=== PATIENT | female | born 1980 | race Caucasian/White ===

== ENCOUNTER 2020-01-07 11:15 | Outpatient (CLI) | payer OTHER, SELFPAY ==
--- NOTE | ~2020-01-07 | XR_ITS ---
EXAMINATION: XR chest 2V EXAM DATE: 01/07/2020 11:37 INDICATION: Left-sided chest pain, posterior pleuritic. Shortness of breath. TECHNIQUE: Frontal and lateral projections of the chest obtained and reviewed. Comparison is made to prior examination from 11/07/2017. FINDINGS: The lungs are clear. There are no pleural effusions. The cardiomediastinal silhouette is within normal limits. There is no pneumothorax suspected. The bones and soft tissues are unremarkab le. IMPRESSION: Normal chest x-ray exam. Reviewed, dictated and finalized at location B. IMPRESSION: Normal chest x-ray exam.
[2020-01-07 11:30] LABS: Basophils Absolute Auto 0.06 K/mm3 (0.00-0.10); Basophils Percent Auto 0.8 % (0.0-1.0); Eosinophils Absolute Auto 0.19 K/mm3 (0.02-0.50); Eosinophils Percent Auto 2.6 % (1.0-6.0); Hematocrit 40.5 % (35.0-49.0); Hemoglobin 13.5 g/dL (12.0-15.0); Immature Granulocyte Absolute 0.02 K/mm3 (0.00-0.00); Immature Granulocyte Percent A 0.3 % (0.0-0.0); Lymphocytes Absolute Auto 2.52 K/mm3 (1.10-4.50); Lymphocytes Percent Auto 34.2 % (18.0-42.0); Mean Corpuscular HGB Conc 33.3 g/dL (32.0-36.0); Mean Corpuscular Hemoglobin 28.8 pg (27.0-31.0); Mean Corpuscular Volume 86.5 fL (78.0-102.0); Mean Platelet Volume 10.2 fl (9.2-11.8); Monocytes Absolute Auto 0.39 K/mm3 (0.10-0.90); Monocytes Percent Auto 5.3 % (2.0-11.0); Neutrophils Absolute Auto 4.2 K/mm3 (1.7-7.2); Neutrophils Percent Auto 56.8 % (50.0-70.0); Platelet Count Result 223 K/mm3 (150-420); Red Blood Count 4.68 M/mm3 (4.20-5.40); Red Cell Distribution Width 12.7 % (11.6-14.4); White Blood Count 7.4 K/mm3 (4.8-10.8)
[2020-01-07 11:44] LABS: D Dimer 0.19 mg/L (0.19-0.50)
[2020-01-07 11:45] LABS: Alanine Aminotransferase 19 U/L (14-59); Albumin Level 3.7 g/dL (3.4-5.0); Alkaline Phosphatase 84 U/L (46-116); Anion Gap 13.3 mmol/L (7-16); Aspartate Amino Transferase 12 U/L (15-37); Bilirubin,Total 0.9 mg/dL (0.00-1.00); Blood Urea Nitrogen 16 mg/dL (7-18); CRP 1.3 mg/dL (0.0-0.9); Calcium 8.3 mg/dL (8.5-10.1); Carbon Dioxide 26 mmol/L (21-32); Chloride 104 mmol/L (98-108); Estimated Glomerular Filt Rate > 60; Glucose 85 mg/dL (70-99); Osmolality Calculated 288 mOsm/kg (285-295); Potassium 4.3 mmol/L (3.5-5.1); Sodium 139 mmol/L (136-145); Total Protein 7.3 g/dL (6.4-8.2)
== END 2020-01-07 11:16 | disposition home or self-care (01) ==
LOC: CHSLAB 11:19
PROVIDERS: PCP Internal Medicine; Visit Provider Internal Medicine
DX: R07.9 Chest pain, unspecified (principal); R09.1 Pleurisy
CPT/HCPCS: 36415; 71046; 80053; 85025; 85380; 86140

== ENCOUNTER 2020-02-03 13:21 | Outpatient (CLI) | payer OTHER, SELFPAY | END 2020-02-03 13:22 | disposition home or self-care (01) | LOC: CHSLAB 13:24 | PROVIDERS: PCP Internal Medicine; Visit Provider Specialist | DX: L91.8 Other hypertrophic disorders of the skin (principal); D22.5 Melanocytic nevi of trunk | CPT/HCPCS: 88305 ==

== ENCOUNTER 2020-02-17 17:15 | Outpatient (CLI) | payer OTHER, SELFPAY | END 2020-02-17 17:16 | disposition home or self-care (01) | LOC: CHSLAB 17:18 | PROVIDERS: PCP Internal Medicine; Visit Provider Specialist | DX: L98.8 Other specified disorders of the skin and subcutaneous tissue (principal) | CPT/HCPCS: 88305; 88342 ==

== ENCOUNTER 2021-06-15 07:33 | Outpatient (CLI) | payer OTHER, SELFPAY ==
[2021-06-15 07:50] LABS: Basophils Absolute Auto 0.08 K/mm3 (0.00-0.10); Eosinophils Absolute Auto 0.21 K/mm3 (0.02-0.50); Eosinophils Percent Auto 2.5 % (1.0-6.0); Hematocrit 38.6 % (35.0-49.0); Hemoglobin 13.1 g/dL (12.0-15.0); Immature Granulocyte Absolute 0.04 K/mm3 (0.00-0.00); Immature Granulocyte Percent A 0.5 % (0.0-0.0); Lymphocytes Absolute Auto 2.18 K/mm3 (1.10-4.50); Mean Corpuscular HGB Conc 33.9 g/dL (32.0-36.0); Mean Corpuscular Volume 85.4 fL (78.0-102.0); Mean Platelet Volume 9.9 fl (9.2-11.8); Monocytes Absolute Auto 0.45 K/mm3 (0.10-0.90); Monocytes Percent Auto 5.4 % (2.0-11.0); Neutrophils Absolute Auto 5.4 K/mm3 (1.7-7.2); Neutrophils Percent Auto 64.6 % (50.0-70.0); Platelet Count Result 250 K/mm3 (150-420); Red Blood Count 4.52 M/mm3 (4.20-5.40); Red Cell Distribution Width 13.2 % (11.6-14.4); White Blood Count 8.4 K/mm3 (4.8-10.8)
[2021-06-15 08:57] LABS: Alanine Aminotransferase 35 U/L (14-59); Albumin Level 3.6 g/dL (3.4-5.0); Alkaline Phosphatase 84 U/L (46-116); Anion Gap 12 mmol/L (8-16); Aspartate Amino Transferase 21 U/L (15-37); Bilirubin,Total 0.8 mg/dL (0.00-1.00); Blood Urea Nitrogen 16 mg/dL (7-18); Calcium 8.5 mg/dL (8.5-10.1); Carbon Dioxide 24 mmol/L (21-32); Chloride 103 mmol/L (98-108); Cholesterol 183 mg/dL (0-200); Estimated Glomerular Filt Rate > 60; Glucose 102 mg/dL (70-99); HDL Direct 41 mg/dL (40-60); LDL Cholesterol Calculated 109 mg/dL (<130); Magnesium 1.8 mg/dL (1.8-2.4); Osmolality Calculated 289 mOsm/kg (285-295); Potassium 4.7 mmol/L (3.5-5.1); Sodium 139 mmol/L (136-145); Total Protein 6.7 g/dL (6.4-8.2); Triglycerides 165 mg/dL (0-150)
[2021-06-15 09:24] LABS: Thyroid Stimulating Hormone 1.61 uIU/mL (0.36-3.74)
[2021-06-15 13:35] LABS: Appearance Urine Clear (Clear); Color Urine Light Yellow (Yellow)
[2021-06-15 13:36] LABS: Blood Urine Trace-Intact (Negative); Glucose Urine UA Negative (Negative); Ketones Urine Trace (Negative); Protein Urine Negative (Negative); Specific Grav Ur >= 1.030 (1.010-1.020)
[2021-06-15 13:37] LABS: Add Urine Microscopic? YES; Bacteria Urine Trace /hpf; Bilirubin Urine Negative (Negative); Leukocyte Esterase Ur Negative (Negative); Mucus Urine Moderate /lpf; Nitrate Urine Negative (Negative); RBC Urine 0-2 /hpf (0-2); Squamous Epithelial Cell Urine Moderate /hpf (Few); Urobilinogen Urine 0.2 mg/dL (0.2-1.0); WBC Urine 0-3 /hpf (0-3)
[2021-06-16 12:29] LABS: Hemoglobin A1C 5.3 % (<5.7)
== END 2021-06-15 07:34 | disposition home or self-care (01) ==
PROVIDERS: PCP Internal Medicine; Visit Provider Internal Medicine
DX: Z00.00 Encounter for general adult medical examination without abnormal findings (principal); R25.2 Cramp and spasm; R73.9 Hyperglycemia, unspecified
CPT/HCPCS: 36415; 80053; 80061; 81001; 83036; 83735; 84443; 85025

== ENCOUNTER 2021-06-17 08:45 | Outpatient (CLI) | payer OTHER, SELFPAY ==
--- NOTE | ~2021-06-17 | MM_ITS ---
EXAMINATION: MM screening kirby BI w bev HISTORY: Screening TECHNIQUE: Craniocaudal and mediolateral oblique 3-D tomosynthesis images were obtained and synthetic 2-D images were generated. CAD analysis was submitted and interpreted. COMPARISON: 07/29/2019 BREAST PARENCHYMAL COMPOSITION: There are scattered areas of fibroglandular density. FINDINGS: There is no evidence of suspicious mass, calcification, or architectural distortion to sugg est malignancy in either breast. There has been no suspicious interval change. IMPRESSION: 1. No mammographic evidence of malignancy. 2. Recommend routine screening mammography in one year. BI-RADS Category 1: Negative Reviewed, dictated and finalized at location A.
== END 2021-06-17 08:46 | disposition home or self-care (01) ==
LOC: CHSIMG 08:47
PROVIDERS: PCP Internal Medicine; Visit Provider Student in an Organized Health Care Education/Training Program
DX: Z12.31 Encounter for screening mammogram for malignant neoplasm of breast (principal)
CPT/HCPCS: 77063; 77067

== ENCOUNTER 2021-09-29 19:17 | Outpatient (CLI) | payer OTHER, SELFPAY ==
[2021-09-29 20:11] LABS: CRP 5.5 mg/dL (0.0-0.9)
[2021-10-13 14:55] LABS: Cyclic Citrullinated Peptide <16
== END 2021-09-29 19:18 | disposition home or self-care (01) ==
LOC: CHSLAB 19:19
PROVIDERS: PCP Internal Medicine; Visit Provider Internal Medicine
DX: M25.50 Pain in unspecified joint (principal)
CPT/HCPCS: 36415; 86140

== ENCOUNTER 2021-12-01 10:52 | Outpatient (CLI) | payer OTHER, SELFPAY ==
[2021-12-01 10:57] LABS: Influenza A QL RT-PCR Negative (Negative); Influenza B QL RT-PCR Negative (Negative)
== END 2021-12-01 10:53 | disposition home or self-care (01) ==
LOC: CHSLAB 10:54
PROVIDERS: PCP Internal Medicine; Visit Provider Internal Medicine
DX: J06.9 Acute upper respiratory infection, unspecified (principal)
CPT/HCPCS: 87502

== ENCOUNTER 2022-04-19 17:20 | Outpatient (CLI) | payer OTHER, SELFPAY ==
[2022-04-19 18:47] LABS: Alanine Aminotransferase 41 U/L (14-59); Albumin Level 3.4 g/dL (3.4-5.0); Alkaline Phosphatase 105 U/L (46-116); Anion Gap 9 mmol/L (8-16); Aspartate Amino Transferase 26 U/L (15-37); Bilirubin,Total 0.7 mg/dL (0.00-1.00); Blood Urea Nitrogen 14 mg/dL (7-18); CRP 4.5 mg/dL (0.0-0.9); Calcium 8.4 mg/dL (8.5-10.1); Carbon Dioxide 25 mmol/L (21-32); Chloride 103 mmol/L (98-108); Estimated Glomerular Filt Rate > 60; Glucose 113 mg/dL (70-99); Osmolality Calculated 285 mOsm/kg (285-295); Potassium 3.9 mmol/L (3.5-5.1); Sodium 137 mmol/L (136-145); Total Protein 6.6 g/dL (6.4-8.2)
[2022-04-19 19:26] LABS: Erythrocyte Sedimentation Rate 33 mm/hr (0-15)
[2022-04-22 12:43] LABS: NIL 0.03 IU/mL; Quantiferon TB Plus, 1T NEGATIVE (NEGATIVE)
[2022-04-25 03:45] LABS: Hepatitis B Surface Antibody Reactive (Nonreactive); Hepatitis C Signal to Cutoff 0.01 ratio (<1.00); Hepatitis C Virus Antibody Nonreactive (Nonreactive)
[2022-04-25 05:42] LABS: Histone Antibody <1.0 U (<1.0)
[2022-04-26 04:58] LABS: Hepatitis B Core Ab Total Nonreactive (Nonreactive)
[2022-04-26 20:11] LABS: Chromatin Antibody <1.0; SM Antibody <1.0; SM/RNP Antibody <1.0
== END 2022-04-19 17:21 | disposition home or self-care (01) ==
LOC: CHSLAB 17:23
PROVIDERS: PCP Internal Medicine; Visit Provider Pediatrics Pediatric Rheumatology
DX: M25.50 Pain in unspecified joint (principal); M19.90 Unspecified osteoarthritis, unspecified site; Z79.899 Other long term (current) drug therapy
CPT/HCPCS: 36415; 80053; 83516; 85652; 86038; 86140; 86225; 86235; 86480; 86704; 86706

== ENCOUNTER 2022-05-09 06:43 | Outpatient (CLI) | payer OTHER, SELFPAY ==
--- NOTE | ~2022-05-09 | MR_ITS ---
EXAMINATION: MR foot RT wo/w con DATE: 05/09/2022 08:33 INDICATION: Arthralgia. Joint inflammation. TECHNIQUE: Magnetic resonance imaging (MRI) of the right foot was performed without and with 20 mL Mu ltiHance intravenous contrast. COMPARISON: None FINDINGS: Bone alignment is normal. No fracture. There is mild osteoarthritis of first metatarsophala ngeal joint and some of the interphalangeal joints. No specific evidence of inflammatory arthropathy. Lisfranc ligament is normal. The flexor and extensor tendons are normal. IMPRESSION: 1. Mild polyarticular osteoarthritis. Reviewed, dictated and finalized at location A.
== END 2022-05-09 06:44 | disposition home or self-care (01) ==
LOC: CHSIMG 06:44
PROVIDERS: PCP Internal Medicine; Visit Provider Pediatrics Pediatric Rheumatology
DX: M25.50 Pain in unspecified joint (principal); M19.90 Unspecified osteoarthritis, unspecified site; Z79.899 Other long term (current) drug therapy
CPT/HCPCS: 73720

== ENCOUNTER 2022-07-24 11:57 | Outpatient (CLI) | payer OTHER, SELFPAY ==
[2022-07-24 12:10] LABS: Basophils Absolute Auto 0.06 K/mm3 (0.00-0.10); Basophils Percent Auto 0.9 % (0.0-1.0); Eosinophils Absolute Auto 0.18 K/mm3 (0.02-0.50); Eosinophils Percent Auto 2.6 % (1.0-6.0); Hematocrit 38.1 % (35.0-49.0); Hemoglobin 12.4 g/dL (12.0-15.0); Immature Granulocyte Absolute 0.02 K/mm3 (0.00-0.00); Immature Granulocyte Percent A 0.3 % (0.0-0.0); Lymphocytes Absolute Auto 2.75 K/mm3 (1.10-4.50); Lymphocytes Percent Auto 39.1 % (18.0-42.0); Mean Corpuscular HGB Conc 32.5 g/dL (32.0-36.0); Mean Corpuscular Hemoglobin 27.5 pg (27.0-31.0); Mean Corpuscular Volume 84.5 fL (78.0-102.0); Mean Platelet Volume 9.9 fl (9.2-11.8); Monocytes Absolute Auto 0.36 K/mm3 (0.10-0.90); Monocytes Percent Auto 5.1 % (2.0-11.0); Neutrophils Absolute Auto 3.7 K/mm3 (1.7-7.2); Platelet Count Result 246 K/mm3 (150-420); Red Blood Count 4.51 M/mm3 (4.20-5.40); Red Cell Distribution Width 13.7 % (11.6-14.4)
[2022-07-24 12:25] LABS: INR 0.9; Partial Thromboplastin Time 28.5 SEC (23.90-30.70); Prothrombin Time 10.1 Seconds (9.50-12.10)
== END 2022-07-24 11:58 | disposition home or self-care (01) ==
LOC: CHSLAB 11:59
PROVIDERS: PCP Internal Medicine; Visit Provider Internal Medicine
DX: N92.0 Excessive and frequent menstruation with regular cycle (principal)
CPT/HCPCS: 36415; 85025; 85610; 85730

== ENCOUNTER 2022-07-27 10:24 | Outpatient (CLI) | payer OTHER, SELFPAY ==
[2022-07-27 10:37] LABS: Hematocrit 38.7 % (35.0-49.0); Hemoglobin 12.5 g/dL (12.0-15.0)
[2022-07-27 11:40] LABS: Alanine Aminotransferase 49 U/L (14-59); Albumin Level 3.8 g/dL (3.4-5.0); Alkaline Phosphatase 100 U/L (46-116); Anion Gap 8 mmol/L (8-16); Aspartate Amino Transferase 34 U/L (15-37); Bilirubin,Total 0.8 mg/dL (0.00-1.00); Blood Urea Nitrogen 18 mg/dL (7-18); Calcium 8.8 mg/dL (8.5-10.1); Carbon Dioxide 26 mmol/L (21-32); Chloride 104 mmol/L (98-108); Estimated Glomerular Filt Rate > 60; Ferritin 64 ng/mL (8-252); Glucose 100 mg/dL (70-99); Iron 62 ug/dL (50-170); Osmolality Calculated 287 mOsm/kg (285-295); Percent Iron Saturation 18 % (12-57); Potassium 4.6 mmol/L (3.5-5.1); Sodium 138 mmol/L (136-145); Total Protein 7.5 g/dL (6.4-8.2)
[2022-08-01 13:59] LABS: Vitamin D 1,25 (OH)2 Total 48 pg/mL (18-72); Vitamin D2 1,25 (OH)2 <8 pg/mL; Vitamin D3 1,25 (OH)2 48 pg/mL
[2022-08-01 20:55] LABS: Parathyroid Intact 44 pg/mL (14-64)
[2022-08-05 22:25] LABS: Vitamin D 25 Hydroxy 22 ng/mL (30-100)
== END 2022-07-27 10:25 | disposition home or self-care (01) ==
PROVIDERS: PCP Internal Medicine; Visit Provider Internal Medicine
DX: N92.0 Excessive and frequent menstruation with regular cycle (principal); E83.51 Hypocalcemia
CPT/HCPCS: 36415; 80053; 82306; 82652; 82728; 83540; 83550; 83970; 85014; 85018

== ENCOUNTER 2022-09-28 09:15 | Outpatient (CLI) | payer OTHER, SELFPAY ==
[2022-09-28 09:52] LABS: Strep Group A RT-PCR NOT DETECTED (Negative)
[2022-09-28 10:04] LABS: Influenza A QL RT-PCR Positive (Negative); Influenza B QL RT-PCR Negative (Negative); SARS-CoV-2 RNA PCR Negative (Negative)
[2022-09-28 10:05] LABS: RSV RNA, RT-PCR Negative (Negative)
== END 2022-09-28 09:16 | disposition home or self-care (01) ==
PROVIDERS: PCP Internal Medicine; Visit Provider Internal Medicine
DX: J06.9 Acute upper respiratory infection, unspecified (principal); Z20.822 Contact with and (suspected) exposure to COVID-19
CPT/HCPCS: 87637; 87651

== ENCOUNTER 2023-02-07 07:23 | Outpatient (CLI) | payer OTHER, SELFPAY ==
[2023-02-07 07:35] LABS: Basophils Absolute Auto 0.05 K/mm3 (0.00-0.10); Basophils Percent Auto 0.7 % (0.0-1.0); Eosinophils Absolute Auto 0.18 K/mm3 (0.02-0.50); Eosinophils Percent Auto 2.4 % (1.0-6.0); Hematocrit 38.7 % (35.0-49.0); Hemoglobin 12.7 g/dL (12.0-15.0); Immature Granulocyte Absolute 0.03 K/mm3 (0.00-0.00); Immature Granulocyte Percent A 0.4 % (0.0-0.0); Mean Corpuscular HGB Conc 32.8 g/dL (32.0-36.0); Mean Corpuscular Hemoglobin 27.5 pg (27.0-31.0); Mean Corpuscular Volume 83.9 fL (78.0-102.0); Mean Platelet Volume 9.9 fl (9.2-11.8); Monocytes Absolute Auto 0.36 K/mm3 (0.10-0.90); Monocytes Percent Auto 4.8 % (2.0-11.0); Neutrophils Absolute Auto 4.8 K/mm3 (1.7-7.2); Neutrophils Percent Auto 63.7 % (50.0-70.0); Platelet Count Result 241 K/mm3 (150-420); Red Blood Count 4.61 M/mm3 (4.20-5.40); Red Cell Distribution Width 13.6 % (11.6-14.4); White Blood Count 7.5 K/mm3 (4.8-10.8)
[2023-02-07 08:47] LABS: Alanine Aminotransferase 20 U/L (14-59); Albumin Level 3.5 g/dL (3.4-5.0); Alkaline Phosphatase 97 U/L (46-116); Anion Gap 12 mmol/L (8-16); Aspartate Amino Transferase 23 U/L (15-37); Blood Urea Nitrogen 14 mg/dL (7-18); Calcium 8.8 mg/dL (8.5-10.1); Carbon Dioxide 25 mmol/L (21-32); Chloride 103 mmol/L (98-108); Cholesterol 152 mg/dL (0-200); Estimated Glomerular Filt Rate > 60; Free T3 2.67 pg/mL (2.18-3.98); Free T4 Free Thyroxine 1.01 ng/dL (0.76-1.46); Glucose 121 mg/dL (70-99); HDL Direct 36 mg/dL (40-60); LDL Cholesterol Calculated 79 mg/dL (<130); Osmolality Calculated 291 mOsm/kg (285-295); Potassium 4.3 mmol/L (3.5-5.1); Sodium 140 mmol/L (136-145); Triglycerides 184 mg/dL (0-150)
[2023-02-07 09:26] LABS: Appearance Urine Slightly Cloudy (Clear); Bilirubin Urine Negative (Negative); Blood Urine 3+ (Negative); Color Urine Yellow (Yellow); Glucose Urine UA Negative (Negative); Ketones Urine Negative (Negative); Leukocyte Esterase Ur Negative (Negative); Nitrate Urine Negative (Negative); Protein Urine Negative (Negative); Specific Grav Ur >= 1.030 (1.010-1.020); Urobilinogen Urine 0.2 mg/dL (0.2-1.0); pH Urine 5.5 (5.0-8.0)
[2023-02-07 09:34] LABS: Add Urine Microscopic? YES; Bacteria Urine Trace /hpf; RBC Urine 21-50 /hpf (0-2); Squamous Epithelial Cell Urine Occasional /hpf (Few); WBC Urine None seen /hpf (0-3)
[2023-02-07 09:35] LABS: Mucus Urine Few /lpf
[2023-02-07 18:31] LABS: Hemoglobin A1C 5.5 % (<5.7)
[2023-02-12 07:34] LABS: Methylmalonic Acid 86 nmol/L (87-318)
== END 2023-02-07 07:24 | disposition home or self-care (01) ==
LOC: CHSLAB 07:25
PROVIDERS: PCP Internal Medicine; Visit Provider Internal Medicine
DX: Z00.00 Encounter for general adult medical examination without abnormal findings (principal); R73.01 Impaired fasting glucose
CPT/HCPCS: 36415; 80053; 80061; 81001; 83036; 83921; 84439; 84443; 84481; 85025

== ENCOUNTER 2023-08-06 11:35 | Outpatient (CLI) | payer OTHER, SELFPAY ==
--- NOTE | ~2023-08-06 | XR_ITS ---
Left Knee Technique: AP, lateral, and sunrise views were obtained. Clinical History: Pain Findings: No fracture or dislocation is seen. Osseous alignment is anatomic. Joint spaces are preserv ed without degenerative or erosive change. Soft tissues are unremarkable. No joint effusion is seen. Impression: Unremarkable left knee radiographs. Reviewed, dictated and finalized at location . [employer] Impression: Unremarkable left knee radiographs.
== END 2023-08-06 11:36 | disposition home or self-care (01) ==
LOC: CHSIMG 11:37
PROVIDERS: PCP Internal Medicine; Visit Provider Nurse Practitioner Family
DX: M25.562 Pain in left knee (principal)
CPT/HCPCS: 73562

== ENCOUNTER → 2023-08-13 08:11 | Outpatient (CLI) | payer OTHER, SELFPAY ==
--- NOTE | ~2023-08-13 | MR_ITS ---
MRI of the left knee Clinical history: Pain Technique: Coronal proton density and proton density-weighted images, sagittal proton-density and T2 fat-sat images, and axial proton-density fat-saturated images were acquired. Findings: Anterior and posterior cruciate ligaments are intact. Medial collateral ligament fibers are intact, but there is soft tissue edema about the MCL. Lateral collateral ligament complex is intact. Popliteus tendon is intact. Medial and lateral menisci are intact, without evidence of tear. Articular cartilage in the medial compartment, and along the femoral trochlea is well preserved. Ther e is patchy moderate chondral malacia patella. Extensor mechanism is intact. No joint effusion or Awan's cyst. Impression: Probable grade 1 MCL sprain. Patchy moderate chondromalacia patella. Reviewed, dictated and finalized at location . [employer] Impression: Probable grade 1 MCL sprain. Patchy moderate chondromalacia patella.
== END ==
PROVIDERS: PCP Internal Medicine; Visit Provider Nurse Practitioner Family
DX: M25.562 Pain in left knee (principal)
CPT/HCPCS: 73721

== ENCOUNTER 2023-08-17 13:06 | Outpatient (RCR) | payer OTHER, SELFPAY ==
--- NOTE | 2023-08-17 15:09 | OPREHPOC ---
Outpatient Therapy Plan of Care This is a Multidisciplinary Plan of Care that may contain components documented by all disciplines (PT, OT, and ST.) PT Problem 1 PT Problem #1 Knowledge Deficit PT Goal 1 Goal Patient to demonstrate independence with HEP Target Visit 6 PT Problem 2 PT Problem #2 Pain PT Goal 1 Goal 1. Patient to report highest pain at 2/10 2. patient to report ability to sleep with no disturbance due to L knee pain Target Visit 12 PT Problem 3 PT Problem #3 Impaired Range of Motion PT Goal 1 Goal patient to demonstrate 0-120 deg of active L knee ROM to return to stair navigation at PLOF Target Visit 12 PT Problem 4 PT Problem #4 Impaired Strength PT Goal 1 Goal Patient to demonstrate 5/5 L LE strength to return to house hold tasks and stepping into bath tub at PLOF Target Visit 12 PT Problem 5 PT Problem #5 Impaired Functional Mobil PT Goal 1 Goal 1. Patient to improve LEFS by 20% 2. Patient to report ability to ambulate 30 min with no increase in L knee pain Target Visit 12
--- NOTE | 2023-08-17 15:10 | PTOPEVAL1 ---
Assessment and note entered by Olga Quintanilla DPT Evaluation Information Assessment Status Evaluation Diagnosis L knee pain Onset 08/14/23 Subjective Information Patient reports she fell out of bed on 08/05/23 and landing akwardly on her L knee. She reports she had an MRI showing a sprain to the L MCL. She reports she has been off work since injury. 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 Patient reports difficulty and pain with stair navigation, stepping into the bath tub, donning/doffing socks and shoes and sleeping. She reports she returns to work on Sunday. Reported Pain Level Pain Score 1: Self Report Assessment PT Clinical Summary Patient is a 43 year old female who presents to PT with L knee pain with MCL sprain. She demonstrates decreased L knee ROM, decreased L knee strength and impaired gait mechanics impairing her ability to navigate stairs, step into bath tub and sleep. She would benefit from skilled PT to address impairments and return to PLOF. Plan of Care Interventions Electrical Stimulation,Gait Training,Hot Pack/Cold Pack,Manual Therapy,Neuro Re-education,Patient/ Caregiver Educati,Therapeutic Activities, Therapeutic Exercise PT Services Indicated Yes Treatment Frequency and 2x weekly for 12 visits Duration These treatments will address the objective and functional deficits as defined above. The patient will be advanced safely and appropriately in order for the patient to progress towards his/her prior level of function. Additional exercises will be introduced and as well as a comprehensive home exercise program upon discharge, if needed, ?to ensure carryover of functional gains achieved in the clinic. This treatment plan has been reviewed and agreement upon by the patient.
--- NOTE | 2023-09-20 14:50 | OPREHPOC ---
Outpatient Therapy Plan of Care This is a Multidisciplinary Plan of Care that may contain components documented by all disciplines (PT, OT, and ST.) PT Problem 1 PT Problem #1 Knowledge Deficit PT Goal 1 Goal Patient to demonstrate independence with HEP Target Visit 6 Progress Met PT Problem 2 PT Problem #2 Pain PT Goal 1 Goal 1. Patient to report highest pain at 2/10 2. patient to report ability to sleep with no disturbance due to L knee pain Target Visit 12 Progress Partially Met PT Problem 3 PT Problem #3 Impaired Range of Motion PT Goal 1 Goal patient to demonstrate 0-120 deg of active L knee ROM to return to stair navigation at PLOF Target Visit 12 Progress Met PT Problem 4 PT Problem #4 Impaired Strength PT Goal 1 Goal Patient to demonstrate 5/5 L LE strength to return to house hold tasks and stepping into bath tub at PLOF Target Visit 12 Progress Met PT Problem 5 PT Problem #5 Impaired Functional Mobil PT Goal 1 Goal 1. Patient to improve LEFS by 20% 2. Patient to report ability to ambulate 30 min with no increase in L knee pain Target Visit 12 Progress Partially Met
--- NOTE | 2023-09-20 14:51 | PTOPPROGNS ---
Assessment and note entered by Olga Quintanilla DPT Evaluation Information Assessment Status Progress Diagnosis L knee pain Onset 08/14/23 Subjective Information Patient reports her knee has improved since start of PT. She reports she has improved ability to navigate stairs but continues to have difficulty sleeping. She reports she has been able to be on her feet for 2 hours prior to onset of pain. She is independent with HEP. Assessment PT Clinical Summary Mrs. Estrella has been seen for 10 visits of skilled PT with great progress towards goals. She has met goals for pain, HEP, strength and ROM at this time. She continues to have pain with sleeping and stair navigation. She will benefit from continued skilled PT to address remaining impairments and return to PLOF. Plan of Care Interventions Electrical Stimulation,Gait Training,Hot Pack/Cold Pack,Manual Therapy,Neuro Re-education,Patient/ Caregiver Educati,Therapeutic Activities, Therapeutic Exercise PT Services Indicated Yes Treatment Frequency and continue with remaining 2 visits Duration These treatments will address the objective and functional deficits as defined above. The patient will be advanced safely and appropriately in order for the patient to progress towards his/her prior level of function. Additional exercises will be introduced and as well as a comprehensive home exercise program upon discharge, if needed, ?to ensure carryover of functional gains achieved in the clinic. This treatment plan has been reviewed and agreement upon by the patient.
--- NOTE | 2023-09-27 14:43 | PTOPDC ---
Assessment and note entered by Olga Quintanilla DPT Evaluation Information Assessment Status Re-evaluation Diagnosis L knee pain Onset 08/14/23 Subjective Information She reports she is feeling a lot better. She reports she continues to have difficulty with stair navigation but reports this has also greatly improved. She reports she is independent with HEP . Reported Pain Level Pain Score 0: Self Report Pain Score 1: Self Report Assessment PT Clinical Summary Patient has been seen for 12 visits of skilled PT with great progress made. She met all goals except for sleep disturbance at this time. She demonstrates appropriate L knee ROM and 5/5 L LE strength. She has been able to return to all daily activities at [facility]. She is independent with HEP and is appropriate for DC at this time. Plan of Care PT Services Indicated No
== END 2023-09-27 14:55 | disposition home or self-care (01) ==
LOC: CHSPT 13:06
PROVIDERS: PCP Internal Medicine; Visit Provider Internal Medicine
DX: S83.412D Sprain of medial collateral ligament of left knee, subsequent encounter (principal)
CPT/HCPCS: 97014; 97110; 97140; 97161; G0283

== ENCOUNTER 2024-10-22 14:04 | Outpatient (CLI) | payer OTHER, SELFPAY ==
[2024-10-22 14:48] LABS: Basophils Absolute Auto 0.05 K/mm3 (0.00-0.10); Basophils Percent Auto 0.6 % (0.0-1.0); Eosinophils Absolute Auto 0.18 K/mm3 (0.02-0.50); Eosinophils Percent Auto 2.2 % (1.0-6.0); Hematocrit 40.7 % (35.0-49.0); Hemoglobin 13.3 g/dL (12.0-15.0); Immature Granulocyte Absolute 0.03 K/mm3 (0.00-0.00); Immature Granulocyte Percent A 0.4 % (0.0-0.0); Lymphocytes Absolute Auto 2.64 K/mm3 (1.10-4.50); Mean Corpuscular HGB Conc 32.7 g/dL (32-36); Mean Corpuscular Hemoglobin 26.6 pg (27.0-31.0); Mean Corpuscular Volume 81.4 fL (78.0-102.0); Mean Platelet Volume 9.9 fl (9.2-11.8); Monocytes Absolute Auto 0.43 K/mm3 (0.10-0.90); Monocytes Percent Auto 5.2 % (2.0-11.0); Neutrophils Absolute Auto 4.91 K/mm3 (1.70-7.20); Neutrophils Percent Auto 59.6 % (50.0-70.0); Platelet Count Result 271 K/mm3 (150-420); White Blood Count 8.2 K/mm3 (4.8-10.8)
[2024-10-22 15:06] LABS: Hemoglobin A1C 5.1 % (<5.7)
[2024-10-22 15:08] LABS: Alanine Aminotransferase 19 U/L (14-59); Albumin Level 3.9 g/dL (3.4-5.0); Alkaline Phosphatase 98 U/L (46-116); Anion Gap 11 mmol/L (4-12); Aspartate Amino Transferase < 10 U/L (15-37); Bilirubin,Total 1.1 mg/dL (0.00-1.00); Blood Urea Nitrogen 17 mg/dL (7-18); Calcium 8.6 mg/dL (8.5-10.1); Carbon Dioxide 27 mmol/L (21-32); Chloride 103 mmol/L (98-108); Estimated Glomerular Filt Rate > 60; Glucose 78 mg/dL (70-99); Osmolality Calculated 292 mOsm/kg (285-295); Potassium 4.3 mmol/L (3.5-5.1); Sodium 141 mmol/L (136-145); Total Protein 7.3 g/dL (6.4-8.2)
[2024-10-22 16:04] LABS: Thyroid Stimulating Hormone Reflex 1.75 u/IU/mL (0.36-3.74)
[2024-10-23 08:03] LABS: FSH 10.4 mIU/mL; LH 3.9 mIU/mL; Prolactin 6.6 ng/mL; Vitamin D 25 Hydroxy 8 ng/mL (30-100)
[2024-10-23 14:34] LABS: Insulin Level Total 33.6 uIU/mL
--- OUTSIDE RECORDS SUMMARY | 2024-10-24 01:48 | XMS_ITS | Clinical Summary ---
Author Organization [facility] Address [address] [place] [address]. [place], [place] [id number] [place] [id number] Care Team Providers Care Advanced Clinical Specialist Name Role Phone Unavailable Primary Care Provider Unavailabl e Social History Tobacco Use Types Packs/Day Years Used Date Smoking Tobacco: Never Assessed Comments Unknown Sex and Gender Information Value Date Recorded Sex Assigned at Not on file Legal Sex Female 7:40 PM CDT Gender Identity Not on file Sexual Orientation Not on file Last Filed Vital Signs Vital Sign Reading Time Taken Comments Blood Pressure 114/86 12/18/2015 7:34 AM CDT Pulse 60 12/18/2015 7:34 AM CDT Temperature - - Respiratory Rate - - Oxygen Saturation - - Inhaled Oxygen Concentration - - Weight - - Height - - Body Mass Index - - Plan of Treatment Health Maintenance Due Date Last Done Comments Cervical Cancer Screening Pa p Smear (Age 30 to 64) Every 3 Years 1979 Colorectal Cancer Screening Colonoscopy (10 Years) 1979 Annual Physical 1982 Hepatitis C 1997 DTaP, Tdap and Td Vaccines ( 1 - Tdap) 1998 Hepatitis B Vaccines (1 of 3 - 19+ 3-dose series) 1998 Cervical Cancer Screening Pa p with HPV Testing (Age 30 to 64) Every 5 Years 2009 Cervical Cancer Screening with HPV 2009 Mammogram Screening 2019 COVID-19 Vaccine (2023-2 5 season) 2024 Influenza Adult (#1) 2024 HPV Vaccines Aged Out No longer eligi ble based on patient's age to complete this topic Meningococcal Vaccine Aged Out No loraine mariam eligible based on patient's age to complete this topic Pneumococcal Vaccine: Pediat rics (0 to 5 Years) and At-Risk Patients (6 to 64 Years) Aged Out No longer eligible b ased on patient's age to complete this topic RSV Immunizations Under 20 Months Aged Out No longer eligible based on patient's age to complete this topic
--- OUTSIDE RECORDS SUMMARY | 2024-10-24 01:48 | XMS_ITS | Referral Summary ---
Author Organization [facility] Address [address] [place] [address] Care Team Providers Care Icing And Glaze Maker Name Role Phone Joey Hurley MD Primary Care Provider [phone] Source Comments [facility],non-owned Affiliates and Associated Physician Practices is amultiple site organization consisting of ambulatory clinics and hospital sitesin [place], [place], [place] and [place]. This disclosure is being madepursuant to the Care Everywhere program and may not contain all information available regarding this patient. Last updated 18.[facility] Allergies No known active allergies Medications * Be aware that medications may not be up to date on this document. Alwaysverify current medications with the patient. Medication Sig Dispensed Refills Start Date End Date Status triamcinolone acetonide (KENALOG) 0.5 % ointment APPLY THIN COAT TO AFFECTED AREA TWICE A DAY 10/31/2021 Active DULoxetine (CYMBALTA) 30 MG capsule TAKE 1 CAPSULE BY MOUTH IN THE EVENING 01/12/2022 Active diclofenac sodium EC (VOLTAREN) 75 MG tablet TAKE 1 TAB BY MOUTH 2 TIMES PER DAY NEEDED 10/19/2021 Active clobetasol (Temovate) 0.05 % ointment APPLY TWICE DAILY TO LEFT KNEE AND RIGHT LEG X 6 WEEKS 05/30/2022 Active Active Problems No known active problems Social History Tobacco Use Types Packs/Day Years Used Date Smoking Tobacco: Never Smokeless Tobacco: Never Alcohol Use Standard Drinks/Week Comments Yes 2 (1 standard drink = 0.6 oz pur e alcohol) PHQ-2 Answer Date Recorded PHQ2 TOTAL SCORE 0 04/19/2022 Sex and Gender Information Value Date Recorded Sex Assigned at Not on file Gender Identity Not on file Sexual Orientation Not on file Last Filed Vital Signs Vital Sign Reading Time Taken Comments Blood Pressure 128/72 06/26/2022 3:29 PM CDT Pulse 69 06/26/2022 3:29 PM CDT Temperature 37 ??C (98.6 ??F) 06/26/2022 3:29 PM CDT Respiratory Rate - - Oxygen Saturation 98% 06/26/2022 3:29 PM CDT Inhaled Oxygen Concentration - - Weight 122.7 kg (270 lb 9.6 oz) 06/26/2022 3:29 PM CDT Height 167.6 cm (5' 6 ) 06/26/2022 3:29 PM CDT Body Mass Index 43.68 06/26/2022 3:29 PM CDT Plan of Treatment Not on file Procedures Procedure Name Priority Date/Time Associated Diagnosis Comments COMPREHENSIVE METABOLIC PANEL Routine 02/07/2022 9:57 AM CDT Arthralgia, unspecified joint Rash from Last 3 Months or Most Recently Relevant to Health Maintenance Results * (ABNORMAL) COMPREHENSIVE METABOLIC PANEL (02/07/2022 9:57 AM CDT) BUN 15 7 - 26 mg/dL 02/07/2022 10:59 AM [facility] Creatinine 0.56 0.56 - 0.96 mg/dL 02/07/2022 10:59 AM [facility] Sodium 138 136 - 145 mmol/L 02/07/2022 10:59 AM [facility] Potassium 4.0 3.5 - 4.5 mmol/L 02/07/2022 10:59 AM [facility] Chloride 104 98 - 107 mmol/L 02/07/2022 10:59 AM [facility] CO2 26 22 - 29 mmol/L 02/07/2022 10:59 AM [facility] Glucose 97 70 - 115 mg/dL 02/07/2022 10:59 AM [facility] Calcium 9.1 8.4 - 10.2 mg/dL 02/07/2022 10:59 AM [facility] Protein Total 7.4 6.0 - 8.3 g/dL 02/07/2022 10:59 AM [facility] Albumin 3.6 3.4 - 5.0 g/dL 02/07/2022 10:59 AM [facility] Bilirubin Total 1.2 0.2 - 1.2 mg/dL 02/07/2022 10:59 AM [facility] Alkaline Phosphatase 88 40 - 150 U/L 02/07/2022 10:59 AM [facility] ALT 41 5 - 55 U/L 02/07/2022 10:59 AM [facility] AST 35(H) 5 - 34 U/L 02/07/2022 10:59 AM [facility] Anion Gap 12 8 - 18 02/07/2022 10:59 AM [facility] BUN/Creatinine Ratio 27(H) 7 - 23 02/07/2022 10:59 AM [facility] Osmolality Calculated 287 270 - 300 mOsm/kg 02/07/2022 10:59 AM [facility] Albumin/Globulin Ratio 0.9(L) 1.1 - 2.3 02/07/2022 10:59 AM [facility] eGFR by CKD-EPI >90 >=90 mL/min/1.7 3 m2 02/07/2022 10:59 AM [facility] Blood BLOOD SPECIMEN / Unknown Lab Venipuncture / Unknown 02/07/2022 9:57 AM T 02/07/2022 10:28 AM [facility] Dede Causey MD LAB - CHEMISTRY ORDERABLES [facility] [address] [place] [address], [facility] [phone] from Last 3 Months or Most Recently Relevant to Health Maintenance Care Teams Icing And Glaze Maker Relationship Specialty Start Date End Date Joey Hurley MD [address] [place] [address] PCP - General 02/04/22
--- OUTSIDE RECORDS SUMMARY | 2024-10-24 01:48 | XMS_ITS | Patient Health Summary ---
Author Organization [facility] Address [address] [place] [address] Care Team Providers Care Rn Icu Name Role Phone Joey Hurley MD Primary Care Provider [phone] Note from [facility],non-owned Affiliates and Associated Physician Practices is amultiple site organization consisting of ambulatory clinics and hospital sitesin [place], [place], [place] and [place]. This disclosure is being madepursuant to the Care Everywhere program and may not contain all information available regarding this patient. Last updated 18.[facility] Allergies No known active allergies Medications * Be aware that medications may not be up to date on this document. Alwaysverify current medications with the patient. * triamcinolone acetonide (KENALOG) 0.5 % ointment(Started 10/31/2021) APPLY THIN COAT TO AFFECTED AREA TWICE A DAY * DULoxetine (CYMBALTA) 30 MG capsule(Started 01/12/2022) TAKE 1 CAPSULE BY MOUTH IN THE EVENING * diclofenac sodium EC (VOLTAREN) 75 MG tablet(Started 10/19/2021) TAKE 1 TAB BY MOUTH 2 TIMES PER DAY NEEDED * clobetasol (Temovate) 0.05 % ointment(Started 05/30/2022) APPLY TWICE DAILY TO LEFT KNEE AND RIGHT LEG X 6 WEEKS Active Problems No known active problems Social [...] Mass Index 43.68 06/26/2022 3:29 PM CDT Procedures * IMAGING/RADIOLOGY/XRAY RESULTS ORDER(Performed 05/09/2022) * LAB RESULTS ORDER(Performed 04/28/2022) * LAB RESULTS ORDER(Performed 04/28/2022) * LAB RESULTS ORDER(Performed 04/27/2022) * LAB RESULTS ORDER(Performed 04/27/2022) * LAB RESULTS ORDER(Performed 04/27/2022) * LAB RESULTS ORDER(Performed 04/26/2022) * LAB RESULTS ORDER(Performed 04/26/2022) * LAB RESULTS ORDER(Performed 04/26/2022) * LAB RESULTS ORDER(Performed 04/26/2022) * LAB RESULTS ORDER(Performed 04/25/2022) * LAB RESULTS ORDER(Performed 04/25/2022) * LAB RESULTS ORDER(Performed 04/25/2022) * LAB RESULTS ORDER(Performed 04/24/2022) * LAB RESULTS ORDER(Performed 04/24/2022) * LAB RESULTS ORDER(Performed 04/20/2022) * LAB RESULTS ORDER(Performed 04/20/2022) * URINE MICROSCOPIC ONLY REFLEX TO CULTURE(Performed 02/07/2022) Performed for Arthralgia, unspecified joint, Rash * URINALYSIS REFLEX MICROSCOPIC REFLEX CULTURE(Performed 02/07/2022) Performed for Arthralgia, unspecified joint, Rash * HLA TYPING B27(Performed 02/07/2022) Performed for Arthralgia, unspecified joint, Rash * RHEUMATOID FACTOR BLOOD QUANTITATIVE(Performed 02/07/2022) Performed for Arthralgia, unspecified joint, Rash * ERYTHROCYTE SEDIMENTATION RATE(Performed 02/07/2022) Performed for Arthralgia, unspecified joint, Rash * C-REACTIVE PROTEIN(Performed 02/07/2022) Performed for Arthralgia, unspecified joint, Rash * CBC W AUTO DIFFERENTIAL(Performed 02/07/2022) Performed for Arthralgia, unspecified joint, Rash * COMPREHENSIVE METABOLIC PANEL(Performed 02/07/2022) Performed for Arthralgia, unspecified joint, Rash * SS-A (SJOGREN'S) 52+60 ANTIBODIES(Performed 02/07/2022) Performed for Arthralgia, unspecified joint, Rash * SS-B (SJOGREN'S) ANTIBODY(Performed 02/07/2022) Performed for Arthralgia, unspecified joint, Rash * XR ANKLE LEFT 2VW(Performed 02/07/2022) Performed for Arthralgia, unspecified joint, Rash * XR WRIST RIGHT 2VW(Performed 02/07/2022) Performed for Arthralgia, unspecified joint, Rash * XR WRIST LEFT 2VW(Performed 02/07/2022) Performed for Arthralgia, unspecified joint, Rash * XR KNEE RIGHT 3VW(Performed 02/07/2022) Performed for Arthralgia, unspecified joint, Rash * XR KNEE LEFT 3VW(Performed 02/07/2022) Performed for Arthralgia, unspecified joint, Rash * XR SI JOINTS 3VW OR MORE(Performed 02/07/2022) Performed for Arthralgia, unspecified joint, Rash * XR FOOT RIGHT 3VW OR MORE(Performed 02/07/2022) Performed for Arthralgia, unspecified joint, Rash * XR FOOT LEFT 3VW OR MORE(Performed 02/07/2022) Performed for Arthralgia, unspecified joint, Rash * XR HAND RIGHT 3VW OR MORE(Performed 02/07/2022) Performed for Arthralgia, unspecified joint, Rash * XR HAND LEFT 3VW OR MORE(Performed 02/07/2022) Performed for Arthralgia, unspecified joint, Rash * XR ANKLE RIGHT 2VW(Performed 02/07/2022) Performed for Arthralgia, unspecified joint, Rash Results * IMAGING RADIOLOGY XRAY RESULTS ORDER (05/09/2022) Anatomical Region Laterality Modality Other 05/09/2022 Narrative 05/09/2022 Ordered by an unspecified provider. Scanned Document IMAGING * LAB RESULTS ORDER (04/28/2022) Only the most recent of16 resultswithin the time period is included. 04/28/2022 Narrative 04/28/2022 Ordered by an unspecified provider. Scanned Document LAB - THERAPEUTIC DR EVETTE MONITORING ORDERABLES * URINE MICROSCOPIC ONLY REFLEX TO CULTURE (02/07/2022 9:57 AM CDT) Reflex Status Culture not indicated 02/07/2022 10:37 AM CDT [facility] RBC UA None Seen None Seen, 0-2, 3-5 /HPF 02/07/2022 10:37 AM CDT [facility] WBC UA 0-5 None Seen, 0-5 /HPF 02/07/2022 10:37 AM CDT [facility] Squamous Epithelial Cells UA 0-2 None Seen, 0-2, 3-5 /HPF 02/07/2022 10:37 AM CDT [facility] Mucus UA 1+ /LPF 02/07/2022 10:37 AM CDT [facility] Urine URINE SPECIMEN OBTAINED BY CLEAN CATCH PROCEDURE / Unknown Collection / Unknown 02/07/2022 9:57 AM CDT 02/07/2022 10:25 AM CDT Narrative [facility] - 02/07/2022 10:37 AM CDT Dede Causey MD LAB - URINALYSI S ORDERABLES [facility] [address] [place] [address], [facility] [phone] * SS-A (SJOGREN'S) 52+60 ANTIBODIES (02/07/2022 9:57 AM CDT) SS-A 52 Antibody 0 0 - 40 AU/mL 02/08/2022 9:59 PM CDT [facility] [employer] ([facility]) Comment: INTERPRETIVE INFORMATION: SSA-52 (Ro52) (OMID) Antibody, IgG ??29 AU/mL or Less ............. Negative ??30 - 40 AU/mL ................ Equivocal ??41 AU/mL or Greater .......... Positive SSA-52 (Ro52) and/or SSA-60 (Ro60) antibodies are associated with a diagnosis of Sjogren syndrome, systemic lupus erythematosus (SLE), and systemic sclerosis. SSA-52 antibody overlaps significantly with the major SSc-related antibodies. SSA-52 (Ro52) antibody occurs frequently in patients with inflammatory myopathies, often in the presence of interstitial lung disease. SS-A 60 Antibody 0 0 - 40 AU/mL 02/08/2022 9:59 PM CDT [facility] [employer] ([facility]) Comment: REFERENCE INTERVAL: SSA-60 (Ro60) (OMID) Antibody, IgG ??29 AU/mL or Less ............. Negative ??30 - 40 AU/mL ................ Equivocal ??41 AU/mL or Greater .......... Positive Performed By: [facility] [address] [place] [address] Senior Software Qa Analyst: Neelima Myers MD Blood BLOOD SPECIMEN / Unknown Lab Venipuncture / Unknown 02/07/2022 9:57 AM CDT 02/07/2022 10:25 AM CDT Dede Causey MD LAB - CHEMISTRY ORDERABLES [facility] [employer] ([facility]) [address] * (ABNORMAL) URINALYSIS REFLEX MICROSCOPIC REFLEX CULTURE (02/07/2022 9:57 AM CDT) Color UA Yellow Straw, Yellow 02/07/2022 10:33 AM [facility] Clarity UA Clear Clear 02/07/2022 10:33 AM [facility] Specific [place] UA 1.017 1.005 - 1.030 02/07/2022 10:33 AM [facility] pH UA 5.0 5.0 - 8.0 pH 02/07/2022 10:33 AM T [facility] Protein UA Negative Negative 02/07/2022 10:33 AM [facility] Glucose UA Negative Negative 02/07/2022 10:33 AM [facility] Ketone UA Negative Negative 02/07/2022 10:33 AM [facility] Bilirubin UA Negative Negative 02/07/2022 10:33 AM [facility] Blood UA 1+(A) Negative 02/07/2022 10:33 AM [facility] Nitrite UA Negative Negative 02/07/2022 10:33 AM [facility] Leukocyte Esterase Negative Negative 02/07/2022 10:33 AM [facility] Urobilinogen UA Negative Negative mg/dL 02/07/2022 10:33 AM [facility] Urine URINE SPECIMEN OBTAINED BY CLEAN CATCH PROCEDURE / Unknown Collection / Unknown 02/07/2022 9:57 AM CDT 02/07/2022 10:25 AM CDT Narrative [facility] - 02/07/2022 10:33 AM CDT Dede Causey MD LAB - URINALYSI S ORDERABLES Performing Organization Address City/State/[facility] Co de Phone Number [facility] [address] [place] [phone], [facility] [phone] * RHEUMATOID FACTOR BLOOD QUANTITATIVE (02/07/2022 9:57 AM CDT) Rheumatoid Factor <15 <30 IU/mL 02/07/2022 11:06 AM [facility] Rheumatoid Factor Screen Negative Negative 02/07/2022 11:06 AM [facility] Blood BLOOD SPECIMEN / Unknown Lab Venipuncture / Unknown 02/07/2022 9:57 AM CDT 02/07/2022 10:25 AM CDT Dede Causey MD LAB - CHEMISTRY ORDERABLES Performing Organization Address [facility]/ZIP Co de Phone Number [address] [address], [facility] [phone] * (ABNORMAL) C-REACTIVE PROTEIN (02/07/2022 9:57 AM CDT) C-Reactive Protein 4.1(H) <=0.5 mg/dL 02/07/2022 11:06 AM CDT [facility] Blood BLOOD SPECIMEN / Unknown Lab Venipuncture / Unknown 02/07/2022 9:57 AM CDT 02/07/2022 10:25 AM CDT Dede Causey MD LAB - CHEMISTRY ORDERABLES Performing Organization Address [facility] Co de Phone Number [address] [address], [facility] [phone] * HLA TYPING B27 (02/07/2022 9:57 AM CDT) Pathologist [facility] HLA-B27 Negative Negative 02/08/2022 5:44 PM CDT [email or web address] ([facility]) Comment: INTERPRETIVE INFORMATION: HLA-B27 HLA-B27 is a serologically defined allele of the human HLA-B locus. The presence of the HLA-B27 antigen is strongly associated with ankylosing spondylitis and related disorders. This test was developed and its performance characteristics determined by [facility]. It has not been cleared or approved by the [place] Food and Drug Administration. This test was performed in a CLIA certified laboratory and is intended for clinical purposes. Performed by [facility], [address] [place] [id number] [email or web address], Neelima Myers MD, Lab. Director Blood BLOOD SPECIMEN / Unknown Lab Venipuncture / Unknown 02/07/2022 9:57 AM CDT 02/07/2022 10:25 AM CDT Dede Causey MD LAB - CHEMISTRY ORDERABLES Performing Organization Address [facility]/ZIP Co de Phone Number [facility]) [address] * SS-B (SJOGREN'S) ANTIBODY (02/07/2022 9:57 AM CDT) SS-B Antibody 0 0 - 40 AU/mL 02/08/2022 9:04 PM CDT [facility] ([facility]) Comment: INTERPRETIVE INFORMATION: SSB (La) (OMID) Ab, IgG ??29 AU/mL or Less ............. Negative ??30 - 40 AU/mL ................ Equivocal ??41 AU/mL or Greater .......... Positive SSB (La) antibody is seen in 50-60% of Sjogren syndrome cases and is specific if it is the only OMID antibody present. 15-25% of patients with systemic lupus erythematosus (SLE) and 5-10% of patients with progressive systemic sclerosis (PSS) also have this antibody. Performed By: [facility] [employer] [address] [place] [address] Senior Software Qa Analyst: Neelima Myers MD Blood BLOOD SPECIMEN / Unknown Lab Venipuncture / Unknown 02/07/2022 9:57 AM CDT 02/07/2022 10:25 AM CDT Dede Causey MD LAB - CHEMISTRY ORDERABLES [facility]) [address] * (ABNORMAL) ERYTHROCYTE SEDIMENTATION RATE (02/07/2022 9:57 AM CDT) Erythrocyte Sedimentation Rate Westergren 40(H) 0 - 20 MM/HR 02/07/2022 10:55 AM CDT [facility] Blood BLOOD SPECIMEN / Unknown Lab Venipuncture / Unknown 02/07/2022 9:57 AM CDT 02/07/2022 10:27 AM CDT Dede Causey MD LAB - HEMATOLOG Y ORDERABLES [facility] [address] [place] [address], [facility] [phone] * (ABNORMAL) CBC WITH DIFFERENTIAL (02/07/2022 9:57 AM CDT) WBC 7.8 3.5 - 10.5 10? 3 /uL 02/07/2022 10:45 AM [facility] RBC 4.68 3.80 - 5.20 10? 6 /uL 02/07/2022 10:45 AM [facility] Hemoglobin 12.9 12.0 - 15.6 g/dL 02/07/2022 10:45 AM [facility] Hematocrit 39.9 35.0 - 45.0 % 02/07/2022 10:45 AM [facility] MCV 85.3 80.7 - 98.3 fL 02/07/2022 10:45 AM [facility] MCH 27.6 26.7 - 34.0 pg 02/07/2022 10:45 AM [facility] MCHC 32.3 30.8 - 35.9 g/dL 02/07/2022 10:45 AM [facility] Platelet Count 244 150 - 400 10? 3 /uL 02/07/2022 10:45 AM [facility] RDW-SD 42.8 36.0 - 50.0 fL 02/07/2022 10:45 AM [facility] RDW-CV 13.9 11.2 - 14.8 % 02/07/2022 10:45 AM [facility] MPV 10.5 9.4 - 12.9 fL 02/07/2022 10:45 AM [facility] nRBC Absolute 0.00 0 10? 3 /uL 02/07/2022 10:45 AM [facility] nRBC Auto 0.0 0 /100 WBC 02/07/2022 10:45 AM [facility] Neutrophils % 60.6 35.0 - 70.0 % 02/07/2022 10:45 AM [facility] Lymphocytes % 29.4 20.0 - 43.0 % 02/07/2022 10:45 AM [facility] Monocytes % 5.4 5.0 - 13.0 % 02/07/2022 10:45 AM [facility] Eosinophils % 3.1 0.0 - 6.0 % 02/07/2022 10:45 AM [facility] Basophil % 1.2 0.0 - 2.0 % 02/07/2022 10:45 AM [facility] Neutrophils Absolute 4.7 1.6 - 7.0 10? 3 /uL 02/07/2022 10:45 AM [facility] Lymphocyte Absolute 2.3 1.1 - 3.9 10? 3 /uL 02/07/2022 10:45 AM [facility] Monocytes Absolute 0.42 0.26 - 1.07 10? 3 /uL 02/07/2022 10:45 AM [facility] Eosinophils Absolute 0.24 0.00 - 0.47 10? 3 /uL 02/07/2022 10:45 AM [facility] Basophils Absolute 0.09(H) 0.00 - 0.08 10? 3 /uL 02/07/2022 10:45 AM [facility] Immature Granulocytes % 0.3 0.0 - 1.0 % 02/07/2022 10:45 AM [facility] Immature Granulocytes Absolute 0.02 02/07/2022 10:45 AM [facility] Blood BLOOD SPECIMEN / Unknown Lab Venipuncture / Unknown 02/07/2022 9:57 AM CDT 02/07/2022 10:27 AM CDT Dede Causey MD LAB - HEMATOLOG Y ORDERABLES [address] [address], [facility] [phone] * (ABNORMAL) COMPREHENSIVE METABOLIC PANEL (02/07/2022 9:57 AM CDT) Pathologist [facility] BUN 15 7 - 26 mg/dL 02/07/2022 10:59 AM [facility] Creatinine 0.56 0.56 - 0.96 mg/dL 02/07/2022 10:59 AM [facility] Sodium 138 136 - 145 mmol/L 02/07/2022 10:59 AM [facility] Potassium 4.0 3.5 - 4.5 mmol/L 02/07/2022 10:59 AM [facility] Chloride 104 98 - 107 mmol/L 02/07/2022 10:59 AM [facility] CO2 26 22 - 29 mmol/L 02/07/2022 10:59 AM [facility] Glucose 97 70 - 115 mg/dL 02/07/2022 10:59 AM [facility] Calcium 9.1 8.4 - 10.2 mg/dL 02/07/2022 10:59 AM [facility] Protein Total 7.4 6.0 - 8.3 g/dL 02/07/2022 10:59 AM [facility] Albumin 3.6 3.4 - 5.0 g/dL 02/07/2022 10:59 AM [facility] Bilirubin Total 1.2 0.2 - 1.2 mg/dL 02/07/2022 10:59 AM [facility] Alkaline Phosphatase 88 40 - 150 U/L 02/07/2022 10:59 AM [facility] ALT 41 5 - 55 U/L 02/07/2022 10:59 AM [facility] AST 35(H) 5 - 34 U/L 02/07/2022 10:59 AM [facility] Anion Gap 12 8 - 18 02/07/2022 10:59 AM [facility] BUN/Creatinine Ratio 27(H) 7 - 23 02/07/2022 10:59 AM [facility] Osmolality Calculated 287 270 - 300 mOsm/kg 02/07/2022 10:59 AM [facility] Albumin/Globulin Ratio 0.9(L) 1.1 - 2.3 02/07/2022 10:59 AM [facility] eGFR by CKD-EPI >90 >=90 mL/min/1.7 3 m2 02/07/2022 10:59 AM [facility] Blood BLOOD SPECIMEN / Unknown Lab Venipuncture / Unknown 02/07/2022 9:57 AM CDT 02/07/2022 10:28 AM CDT Dede Liz Causey MD LAB - CHEMISTRY ORDERABLES Performing Organization Address [facility]/State/ZIP Co de Phone Number [facility] [address] [place] [address], [facility] [phone] * XR KNEE RIGHT 3VW (02/07/2022 9:44 AM CDT) Anatomical Region Laterality Modality Lower Extremity Radiographic Jennifer ging 02/07/2022 9:46 AM CDT Impressions 02/07/2022 9:52 AM CDT IMPRESSION: 1. Right and left hands, wrists, knees, and feet: Normal. 2. Right and left ankles: Calcaneal spurs. No evidence of arthritis. 3. Sacroiliac joints: Normal. This report was electronically signed by SYLVAIN FRENCH MD ??on 02/07/2022 9:52 AM . Narrative 02/07/2022 9:52 AM CDT Exam: 1.XR HAND RIGHT 3VW 2.XR ANKLE LEFT 2VW 3.XR WRIST RIGHT 2VW 4.XR WRIST LEFT 2VW 5.XR KNEE RIGHT 3VW 6.XR KNEE LEFT 3VW 7.XR SI JOINTS 3VW 8.XR FOOT RIGHT 3VW 9.XR FOOT LEFT 3VW 10.XR HAND LEFT 3VW 11.XR ANKLE RIGHT 2VW History: ??M25.50: Arthralgia, unspecified joint R21: Rash Comparison: None. Findings: Right hand: No fracture or dislocation is present. The joint spaces are normal. No erosions are seen. ??Bone density is normal. ??The soft tissues are normal. Left hand: No fracture or dislocation is present. The joint spaces are normal. No erosions are seen. ??Bone density is normal. ??The soft tissues are normal. Right wrist: No fracture or dislocation is present. The joint spaces are normal. No erosions are seen. ??Bone density is normal. ??The soft tissues are normal. Left wrist: No fracture or dislocation is present. The joint spaces are normal. No erosions are seen. ??Bone density is normal. ??The soft tissues are normal. Right knee: No acute fracture or dislocation is present. No erosions are seen. The joint spaces are normal. There is no effusion. Left knee: No acute fracture or dislocation is present. No erosions are seen. The joint spaces are normal. There is no effusion. Right ankle: No fracture or dislocation is present. The joint spaces are normal. No erosions are seen. ??Bone density is normal. A moderate-sized plantar calcaneal spur is visible. There are several calcifications in the plantar soft tissues of the hindfoot. Left ankle: No fracture or dislocation is present. The joint spaces are normal. No erosions are seen. ??Bone density is normal. ??The soft tissues are normal. There is a small plantar calcaneal spur. Right foot: No fracture or dislocation is present. The joint spaces are normal. Small subchondral cysts in the first proximal phalanx head. No erosions are seen. ??Bone density is normal. ??The soft tissues are normal. ??Tip 2 os navicularis. Left foot: No fracture or dislocation is present. The joint spaces are normal. No erosions are seen. ??Bone density is normal. ??The soft tissues are normal. Type 2 os navicularis noted. Sacroiliac joints: There is no erosion, widening, sclerosis, narrowing, or ankylosis of either sacroiliac joint. There is no fracture. The hip joint spaces are normal. Procedure Note Sylvain French MD - 02/07/2022 Exam: 1.XR HAND RIGHT 3VW 2.XR ANKLE LEFT 2VW 3.XR WRIST RIGHT 2VW 4.XR WRIST LEFT 2VW 5.XR KNEE RIGHT 3VW 6.XR KNEE LEFT 3VW 7.XR SI JOINTS 3VW 8.XR FOOT RIGHT 3VW 9.XR FOOT LEFT 3VW 10.XR HAND LEFT 3VW 11.XR ANKLE RIGHT 2VW History: M25.50: Arthralgia, unspecified joint R21: Rash Comparison: None. Findings: Right hand: No fracture or dislocation is present. The joint spaces are normal. No erosions are seen. Bone density is normal. The soft tissues arenormal. Left hand: No fracture or dislocation is present. The joint spaces are normal. No erosions are seen. Bone density is normal. The soft tissues arenormal. Right wrist: No fracture or dislocation is present. The joint spaces are normal. No erosions are seen. Bone density is normal. The soft tissues arenormal. Left wrist: No fracture or dislocation is present. The joint spaces are normal. No erosions are seen. Bone density is normal. The soft tissues arenormal. Right knee: No acute fracture or dislocation is present. No erosions are seen. The joint spaces are normal. There is no effusion. Left knee: No acute fracture or dislocation is present. No erosions are seen. The joint spaces are normal. There is no effusion. Right ankle: No fracture or dislocation is present. The joint spaces are normal. No erosions are seen. Bone density is normal. A moderate-sized plantar calcaneal spur is visible. There are several calcifications in theplantar soft tissues of the hindfoot. Left ankle: No fracture or dislocation is present. The joint spaces are normal. No erosions are seen. Bone density is normal. The soft tissues arenormal. There is a small plantar calcaneal spur. Right foot: No fracture or dislocation is present. The joint spaces are normal.Small subchondral cysts in the first proximal phalanx head. No erosions are seen. Bone density is normal. The soft tissues are normal. Tip 2 os navicularis. Left foot: No fracture or dislocation is present. The joint spaces are normal. No erosions are seen. Bone density is normal. The soft tissues arenormal. Type 2 os navicularis noted. Sacroiliac joints: There is no erosion, widening, sclerosis, narrowing, or ankylosis of either sacroiliac joint. There is no fracture. The hip joint spaces are normal. IMPRESSION: 1. Right and left hands, wrists, knees, and feet: Normal. 2. Right and left ankles: Calcaneal spurs. No evidence of arthritis. 3. Sacroiliac joints: Normal. This report was electronically signed by SYLVAIN FRENCH MD on02/07/2022 9:52 AM . Dede Causey MD DIAGNOSTIC IMAG ING ORDERABLES * XR FOOT RIGHT 3VW OR MORE (02/07/2022 9:44 AM CDT) Anatomical Region Laterality Modality Ankle / Foot Radiographic Jennifer ging 02/07/2022 9:46 AM CDT Impressions 02/07/2022 9:52 AM CDT IMPRESSION: 1. Right and left hands, wrists, knees, and feet: Normal. 2. Right and left ankles: Calcaneal spurs. No evidence of arthritis. 3. Sacroiliac joints: Normal. This report was electronically signed by SYLVAIN FRENCH MD ??on 02/07/2022 9:52 AM . Narrative 02/07/2022 9:52 AM CDT Exam: 1.XR HAND RIGHT 3VW 2.XR ANKLE LEFT 2VW 3.XR WRIST RIGHT 2VW 4.XR WRIST LEFT 2VW 5.XR KNEE RIGHT 3VW 6.XR KNEE LEFT 3VW 7.XR SI JOINTS 3VW 8.XR FOOT RIGHT 3VW 9.XR FOOT LEFT 3VW 10.XR HAND LEFT 3VW 11.XR ANKLE RIGHT 2VW History: ??M25.50: Arthralgia, unspecified joint R21: Rash Comparison: None. Findings: Right hand: No fracture or dislocation is present. The joint spaces are normal. No erosions are seen. ??Bone density is normal. ??The soft tissues are normal. Left hand: No fracture or dislocation is present. The joint spaces are normal. No erosions are seen. ??Bone density is normal. ??The soft tissues are normal. Right wrist: No fracture or dislocation is present. The joint spaces are normal. No erosions are seen. ??Bone density is normal. ??The soft tissues are normal. Left wrist: No fracture or dislocation is present. The joint spaces are normal. No erosions are seen. ??Bone density is normal. ??The soft tissues are normal. Right knee: No acute fracture or dislocation is present. No erosions are seen. The joint spaces are normal. There is no effusion. Left knee: No acute fracture or dislocation is present. No erosions are seen. The joint spaces are normal. There is no effusion. Right ankle: No fracture or dislocation is present. The joint spaces are normal. No erosions are seen. ??Bone density is normal. A moderate-sized plantar calcaneal spur is visible. There are several calcifications in the plantar soft tissues of the hindfoot. Left ankle: No fracture or dislocation is present. The joint spaces are normal. No erosions are seen. ??Bone density is normal. ??The soft tissues are normal. There is a small plantar calcaneal spur. Right foot: No fracture or dislocation is present. The joint spaces are normal. Small subchondral cysts in the first proximal phalanx head. No erosions are seen. ??Bone density is normal. ??The soft tissues are normal. ??Tip 2 os navicularis. Left foot: No fracture or dislocation is present. The joint spaces are normal. No erosions are seen. ??Bone density is normal. ??The soft tissues are normal. Type 2 os navicularis noted. Sacroiliac joints: There is no erosion, widening, sclerosis, narrowing, or ankylosis of either sacroiliac joint. There is no fracture. The hip joint spaces are normal. Procedure Note Sylvain French MD - 02/07/2022 Exam: 1.XR HAND RIGHT 3VW 2.XR ANKLE LEFT 2VW 3.XR WRIST RIGHT 2VW 4.XR WRIST LEFT 2VW 5.XR KNEE RIGHT 3VW 6.XR KNEE LEFT 3VW 7.XR SI JOINTS 3VW 8.XR FOOT RIGHT 3VW 9.XR FOOT LEFT 3VW 10.XR HAND LEFT 3VW 11.XR ANKLE RIGHT 2VW History: M25.50: Arthralgia, unspecified joint R21: Rash Comparison: None. Findings: Right hand: No fracture or dislocation is present. The joint spaces are normal. No erosions are seen. Bone density is normal. The soft tissues arenormal. Left hand: No fracture or dislocation is present. The joint spaces are normal. No erosions are seen. Bone density is normal. The soft tissues arenormal. Right wrist: No fracture or dislocation is present. The joint spaces are normal. No erosions are seen. Bone density is normal. The soft tissues arenormal. Left wrist: No fracture or dislocation is present. The joint spaces are normal. No erosions are seen. Bone density is normal. The soft tissues arenormal. Right knee: No acute fracture or dislocation is present. No erosions are seen. The joint spaces are normal. There is no effusion. Left knee: No acute fracture or dislocation is present. No erosions are seen. The joint spaces are normal. There is no effusion. Right ankle: No fracture or dislocation is present. The joint spaces are normal. No erosions are seen. Bone density is normal. A moderate-sized plantar calcaneal spur is visible. There are several calcifications in theplantar soft tissues of the hindfoot. Left ankle: No fracture or dislocation is present. The joint spaces are normal. No erosions are seen. Bone density is normal. The soft tissues arenormal. There is a small plantar calcaneal spur. Right foot: No fracture or dislocation is present. The joint spaces are normal.Small subchondral cysts in the first proximal phalanx head. No erosions are seen. Bone density is normal. The soft tissues are normal. Tip 2 os navicularis. Left foot: No fracture or dislocation is present. The joint spaces are normal. No erosions are seen. Bone density is normal. The soft tissues arenormal. Type 2 os navicularis noted. Sacroiliac joints: There is no erosion, widening, sclerosis, narrowing, or ankylosis of either sacroiliac joint. There is no fracture. The hip joint spaces are normal. IMPRESSION: 1. Right and left hands, wrists, knees, and feet: Normal. 2. Right and left ankles: Calcaneal spurs. No evidence of arthritis. 3. Sacroiliac joints: Normal. This report was electronically signed by SYLVAIN FRENCH MD on02/07/2022 9:52 AM . Dede Causey MD DIAGNOSTIC IMAG ING ORDERABLES * XR FOOT LEFT 3VW OR MORE (02/07/2022 9:44 AM CDT) Anatomical Region Laterality Modality Ankle / Foot Radiographic Jennifer ging 02/07/2022 9:46 AM CDT Impressions 02/07/2022 9:52 AM CDT IMPRESSION: 1. Right and left hands, wrists, knees, and feet: Normal. 2. Right and left ankles: Calcaneal spurs. No evidence of arthritis. 3. Sacroiliac joints: Normal. This report was electronically signed by SYLVAIN FRENCH MD ??on 02/07/2022 9:52 AM . Narrative 02/07/2022 9:52 AM CDT Exam: 1.XR HAND RIGHT 3VW 2.XR ANKLE LEFT 2VW 3.XR WRIST RIGHT 2VW 4.XR WRIST LEFT 2VW 5.XR KNEE RIGHT 3VW 6.XR KNEE LEFT 3VW 7.XR SI JOINTS 3VW 8.XR FOOT RIGHT 3VW 9.XR FOOT LEFT 3VW 10.XR HAND LEFT 3VW 11.XR ANKLE RIGHT 2VW History: ??M25.50: Arthralgia, unspecified joint R21: Rash Comparison: None. Findings: Right hand: No fracture or dislocation is present. The joint spaces are normal. No erosions are seen. ??Bone density is normal. ??The soft tissues are normal. Left hand: No fracture or dislocation is present. The joint spaces are normal. No erosions are seen. ??Bone density is normal. ??The soft tissues are normal. Right wrist: No fracture or dislocation is present. The joint spaces are normal. No erosions are seen. ??Bone density is normal. ??The soft tissues are normal. Left wrist: No fracture or dislocation is present. The joint spaces are normal. No erosions are seen. ??Bone density is normal. ??The soft tissues are normal. Right knee: No acute fracture or dislocation is present. No erosions are seen. The joint spaces are normal. There is no effusion. Left knee: No acute fracture or dislocation is present. No erosions are seen. The joint spaces are normal. There is no effusion. Right ankle: No fracture or dislocation is present. The joint spaces are normal. No erosions are seen. ??Bone density is normal. A moderate-sized plantar calcaneal spur is visible. There are several calcifications in the plantar soft tissues of the hindfoot. Left ankle: No fracture or dislocation is present. The joint spaces are normal. No erosions are seen. ??Bone density is normal. ??The soft tissues are normal. There is a small plantar calcaneal spur. Right foot: No fracture or dislocation is present. The joint spaces are normal. Small subchondral cysts in the first proximal phalanx head. No erosions are seen. ??Bone density is normal. ??The soft tissues are normal. ??Tip 2 os navicularis. Left foot: No fracture or dislocation is present. The joint spaces are normal. No erosions are seen. ??Bone density is normal. ??The soft tissues are normal. Type 2 os navicularis noted. Sacroiliac joints: There is no erosion, widening, sclerosis, narrowing, or ankylosis of either sacroiliac joint. There is no fracture. The hip joint spaces are normal. Procedure Note Sylvain French MD - 02/07/2022 Exam: 1.XR HAND RIGHT 3VW 2.XR ANKLE LEFT 2VW 3.XR WRIST RIGHT 2VW 4.XR WRIST LEFT 2VW 5.XR KNEE RIGHT 3VW 6.XR KNEE LEFT 3VW 7.XR SI JOINTS 3VW 8.XR FOOT RIGHT 3VW 9.XR FOOT LEFT 3VW 10.XR HAND LEFT 3VW 11.XR ANKLE RIGHT 2VW History: M25.50: Arthralgia, unspecified joint R21: Rash Comparison: None. Findings: Right hand: No fracture or dislocation is present. The joint spaces are normal. No erosions are seen. Bone density is normal. The soft tissues arenormal. Left hand: No fracture or dislocation is present. The joint spaces are normal. No erosions are seen. Bone density is normal. The soft tissues arenormal. Right wrist: No fracture or dislocation is present. The joint spaces are normal. No erosions are seen. Bone density is normal. The soft tissues arenormal. Left wrist: No fracture or dislocation is present. The joint spaces are normal. No erosions are seen. Bone density is normal. The soft tissues arenormal. Right knee: No acute fracture or dislocation is present. No erosions are seen. The joint spaces are normal. There is no effusion. Left knee: No acute fracture or dislocation is present. No erosions are seen. The joint spaces are normal. There is no effusion. Right ankle: No fracture or dislocation is present. The joint spaces are normal. No erosions are seen. Bone density is normal. A moderate-sized plantar calcaneal spur is visible. There are several calcifications in theplantar soft tissues of the hindfoot. Left ankle: No fracture or dislocation is present. The joint spaces are normal. No erosions are seen. Bone density is normal. The soft tissues arenormal. There is a small plantar calcaneal spur. Right foot: No fracture or dislocation is present. The joint spaces are normal.Small subchondral cysts in the first proximal phalanx head. No erosions are seen. Bone density is normal. The soft tissues are normal. Tip 2 os navicularis. Left foot: No fracture or dislocation is present. The joint spaces are normal. No erosions are seen. Bone density is normal. The soft tissues arenormal. Type 2 os navicularis noted. Sacroiliac joints: There is no erosion, widening, sclerosis, narrowing, or ankylosis of either sacroiliac joint. There is no fracture. The hip joint spaces are normal. IMPRESSION: 1. Right and left hands, wrists, knees, and feet: Normal. 2. Right and left ankles: Calcaneal spurs. No evidence of arthritis. 3. Sacroiliac joints: Normal. This report was electronically signed by SYLVAIN FRENCH MD on02/07/2022 9:52 AM . Dede Causey MD DIAGNOSTIC IMAG ING ORDERABLES * XR ANKLE RIGHT 2VW (02/07/2022 9:44 AM CDT) Anatomical Region Laterality Modality Lower Extremity Radiographic Jennifer ging 02/07/2022 9:46 AM CDT Impressions 02/07/2022 9:52 AM CDT IMPRESSION: 1. Right and left hands, wrists, knees, and feet: Normal. 2. Right and left ankles: Calcaneal spurs. No evidence of arthritis. 3. Sacroiliac joints: Normal. This report was electronically signed by SYLVAIN FRENCH MD ??on 02/07/2022 9:52 AM . Narrative 02/07/2022 9:52 AM CDT Exam: 1.XR HAND RIGHT 3VW 2.XR ANKLE LEFT 2VW 3.XR WRIST RIGHT 2VW 4.XR WRIST LEFT 2VW 5.XR KNEE RIGHT 3VW 6.XR KNEE LEFT 3VW 7.XR SI JOINTS 3VW 8.XR FOOT RIGHT 3VW 9.XR FOOT LEFT 3VW 10.XR HAND LEFT 3VW 11.XR ANKLE RIGHT 2VW History: ??M25.50: Arthralgia, unspecified joint R21: Rash Comparison: None. Findings: Right hand: No fracture or dislocation is present. The joint spaces are normal. No erosions are seen. ??Bone density is normal. ??The soft tissues are normal. Left hand: No fracture or dislocation is present. The joint spaces are normal. No erosions are seen. ??Bone density is normal. ??The soft tissues are normal. Right wrist: No fracture or dislocation is present. The joint spaces are normal. No erosions are seen. ??Bone density is normal. ??The soft tissues are normal. Left wrist: No fracture or dislocation is present. The joint spaces are normal. No erosions are seen. ??Bone density is normal. ??The soft tissues are normal. Right knee: No acute fracture or dislocation is present. No erosions are seen. The joint spaces are normal. There is no effusion. Left knee: No acute fracture or dislocation is present. No erosions are seen. The joint spaces are normal. There is no effusion. Right ankle: No fracture or dislocation is present. The joint spaces are normal. No erosions are seen. ??Bone density is normal. A moderate-sized plantar calcaneal spur is visible. There are several calcifications in the plantar soft tissues of the hindfoot. Left ankle: No fracture or dislocation is present. The joint spaces are normal. No erosions are seen. ??Bone density is normal. ??The soft tissues are normal. There is a small plantar calcaneal spur. Right foot: No fracture or dislocation is present. The joint spaces are normal. Small subchondral cysts in the first proximal phalanx head. No erosions are seen. ??Bone density is normal. ??The soft tissues are normal. ??Tip 2 os navicularis. Left foot: No fracture or dislocation is present. The joint spaces are normal. No erosions are seen. ??Bone density is normal. ??The soft tissues are normal. Type 2 os navicularis noted. Sacroiliac joints: There is no erosion, widening, sclerosis, narrowing, or ankylosis of either sacroiliac joint. There is no fracture. The hip joint spaces are normal. Procedure Note Sylvain French MD - 02/07/2022 Exam: 1.XR HAND RIGHT 3VW 2.XR ANKLE LEFT 2VW 3.XR WRIST RIGHT 2VW 4.XR WRIST LEFT 2VW 5.XR KNEE RIGHT 3VW 6.XR KNEE LEFT 3VW 7.XR SI JOINTS 3VW 8.XR FOOT RIGHT 3VW 9.XR FOOT LEFT 3VW 10.XR HAND LEFT 3VW 11.XR ANKLE RIGHT 2VW History: M25.50: Arthralgia, unspecified joint R21: Rash Comparison: None. Findings: Right hand: No fracture or dislocation is present. The joint spaces are normal. No erosions are seen. Bone density is normal. The soft tissues arenormal. Left hand: No fracture or dislocation is present. The joint spaces are normal. No erosions are seen. Bone density is normal. The soft tissues arenormal. Right wrist: No fracture or dislocation is present. The joint spaces are normal. No erosions are seen. Bone density is normal. The soft tissues arenormal. Left wrist: No fracture or dislocation is present. The joint spaces are normal. No erosions are seen. Bone density is normal. The soft tissues arenormal. Right knee: No acute fracture or dislocation is present. No erosions are seen. The joint spaces are normal. There is no effusion. Left knee: No acute fracture or dislocation is present. No erosions are seen. The joint spaces are normal. There is no effusion. Right ankle: No fracture or dislocation is present. The joint spaces are normal. No erosions are seen. Bone density is normal. A moderate-sized plantar calcaneal spur is visible. There are several calcifications in theplantar soft tissues of the hindfoot. Left ankle: No fracture or dislocation is present. The joint spaces are normal. No erosions are seen. Bone density is normal. The soft tissues arenormal. There is a small plantar calcaneal spur. Right foot: No fracture or dislocation is present. The joint spaces are normal.Small subchondral cysts in the first proximal phalanx head. No erosions are seen. Bone density is normal. The soft tissues are normal. Tip 2 os navicularis. Left foot: No fracture or dislocation is present. The joint spaces are normal. No erosions are seen. Bone density is normal. The soft tissues arenormal. Type 2 os navicularis noted. Sacroiliac joints: There is no erosion, widening, sclerosis, narrowing, or ankylosis of either sacroiliac joint. There is no fracture. The hip joint spaces are normal. IMPRESSION: 1. Right and left hands, wrists, knees, and feet: Normal. 2. Right and left ankles: Calcaneal spurs. No evidence of arthritis. 3. Sacroiliac joints: Normal. This report was electronically signed by SYLVAIN FRENCH MD on02/07/2022 9:52 AM . Dede Causey MD DIAGNOSTIC IMAG ING ORDERABLES * XR ANKLE LEFT 2VW (02/07/2022 9:44 AM CDT) Anatomical Region Laterality Modality Lower Extremity Radiographic Jennifer ging 02/07/2022 9:46 AM CDT Impressions 02/07/2022 9:52 AM CDT IMPRESSION: 1. Right and left hands, wrists, knees, and feet: Normal. 2. Right and left ankles: Calcaneal spurs. No evidence of arthritis. 3. Sacroiliac joints: Normal. This report was electronically signed by SYLVAIN FRENCH MD ??on 02/07/2022 9:52 AM . Narrative 02/07/2022 9:52 AM CDT Exam: 1.XR HAND RIGHT 3VW 2.XR ANKLE LEFT 2VW 3.XR WRIST RIGHT 2VW 4.XR WRIST LEFT 2VW 5.XR KNEE RIGHT 3VW 6.XR KNEE LEFT 3VW 7.XR SI JOINTS 3VW 8.XR FOOT RIGHT 3VW 9.XR FOOT LEFT 3VW 10.XR HAND LEFT 3VW 11.XR ANKLE RIGHT 2VW History: ??M25.50: Arthralgia, unspecified joint R21: Rash Comparison: None. Findings: Right hand: No fracture or dislocation is present. The joint spaces are normal. No erosions are seen. ??Bone density is normal. ??The soft tissues are normal. Left hand: No fracture or dislocation is present. The joint spaces are normal. No erosions are seen. ??Bone density is normal. ??The soft tissues are normal. Right wrist: No fracture or dislocation is present. The joint spaces are normal. No erosions are seen. ??Bone density is normal. ??The soft tissues are normal. Left wrist: No fracture or dislocation is present. The joint spaces are normal. No erosions are seen. ??Bone density is normal. ??The soft tissues are normal. Right knee: No acute fracture or dislocation is present. No erosions are seen. The joint spaces are normal. There is no effusion. Left knee: No acute fracture or dislocation is present. No erosions are seen. The joint spaces are normal. There is no effusion. Right ankle: No fracture or dislocation is present. The joint spaces are normal. No erosions are seen. ??Bone density is normal. A moderate-sized plantar calcaneal spur is visible. There are several calcifications in the plantar soft tissues of the hindfoot. Left ankle: No fracture or dislocation is present. The joint spaces are normal. No erosions are seen. ??Bone density is normal. ??The soft tissues are normal. There is a small plantar calcaneal spur. Right foot: No fracture or dislocation is present. The joint spaces are normal. Small subchondral cysts in the first proximal phalanx head. No erosions are seen. ??Bone density is normal. ??The soft tissues are normal. ??Tip 2 os navicularis. Left foot: No fracture or dislocation is present. The joint spaces are normal. No erosions are seen. ??Bone density is normal. ??The soft tissues are normal. Type 2 os navicularis noted. Sacroiliac joints: There is no erosion, widening, sclerosis, narrowing, or ankylosis of either sacroiliac joint. There is no fracture. The hip joint spaces are normal. Procedure Note Sylvain French MD - 02/07/2022 Exam: 1.XR HAND RIGHT 3VW 2.XR ANKLE LEFT 2VW 3.XR WRIST RIGHT 2VW 4.XR WRIST LEFT 2VW 5.XR KNEE RIGHT 3VW 6.XR KNEE LEFT 3VW 7.XR SI JOINTS 3VW 8.XR FOOT RIGHT 3VW 9.XR FOOT LEFT 3VW 10.XR HAND LEFT 3VW 11.XR ANKLE RIGHT 2VW History: M25.50: Arthralgia, unspecified joint R21: Rash Comparison: None. Findings: Right hand: No fracture or dislocation is present. The joint spaces are normal. No erosions are seen. Bone density is normal. The soft tissues arenormal. Left hand: No fracture or dislocation is present. The joint spaces are normal. No erosions are seen. Bone density is normal. The soft tissues arenormal. Right wrist: No fracture or dislocation is present. The joint spaces are normal. No erosions are seen. Bone density is normal. The soft tissues arenormal. Left wrist: No fracture or dislocation is present. The joint spaces are normal. No erosions are seen. Bone density is normal. The soft tissues arenormal. Right knee: No acute fracture or dislocation is present. No erosions are seen. The joint spaces are normal. There is no effusion. Left knee: No acute fracture or dislocation is present. No erosions are seen. The joint spaces are normal. There is no effusion. Right ankle: No fracture or dislocation is present. The joint spaces are normal. No erosions are seen. Bone density is normal. A moderate-sized plantar calcaneal spur is visible. There are several calcifications in theplantar soft tissues of the hindfoot. Left ankle: No fracture or dislocation is present. The joint spaces are normal. No erosions are seen. Bone density is normal. The soft tissues arenormal. There is a small plantar calcaneal spur. Right foot: No fracture or dislocation is present. The joint spaces are normal.Small subchondral cysts in the first proximal phalanx head. No erosions are seen. Bone density is normal. The soft tissues are normal. Tip 2 os navicularis. Left foot: No fracture or dislocation is present. The joint spaces are normal. No erosions are seen. Bone density is normal. The soft tissues arenormal. Type 2 os navicularis noted. Sacroiliac joints: There is no erosion, widening, sclerosis, narrowing, or ankylosis of either sacroiliac joint. There is no fracture. The hip joint spaces are normal. IMPRESSION: 1. Right and left hands, wrists, knees, and feet: Normal. 2. Right and left ankles: Calcaneal spurs. No evidence of arthritis. 3. Sacroiliac joints: Normal. This report was electronically signed by SYLVAIN FRENCH MD on02/07/2022 9:52 AM . Dede Causey MD DIAGNOSTIC IMAG ING ORDERABLES * XR KNEE LEFT 3VW (02/07/2022 9:44 AM CDT) Anatomical Region Laterality Modality Lower Extremity Radiographic Jennifer ging 02/07/2022 9:46 AM CDT Impressions 02/07/2022 9:52 AM CDT IMPRESSION: 1. Right and left hands, wrists, knees, and feet: Normal. 2. Right and left ankles: Calcaneal spurs. No evidence of arthritis. 3. Sacroiliac joints: Normal. This report was electronically signed by SYLVAIN FRENCH MD ??on 02/07/2022 9:52 AM . Narrative 02/07/2022 9:52 AM CDT Exam: 1.XR HAND RIGHT 3VW 2.XR ANKLE LEFT 2VW 3.XR WRIST RIGHT 2VW 4.XR WRIST LEFT 2VW 5.XR KNEE RIGHT 3VW 6.XR KNEE LEFT 3VW 7.XR SI JOINTS 3VW 8.XR FOOT RIGHT 3VW 9.XR FOOT LEFT 3VW 10.XR HAND LEFT 3VW 11.XR ANKLE RIGHT 2VW History: ??M25.50: Arthralgia, unspecified joint R21: Rash Comparison: None. Findings: Right hand: No fracture or dislocation is present. The joint spaces are normal. No erosions are seen. ??Bone density is normal. ??The soft tissues are normal. Left hand: No fracture or dislocation is present. The joint spaces are normal. No erosions are seen. ??Bone density is normal. ??The soft tissues are normal. Right wrist: No fracture or dislocation is present. The joint spaces are normal. No erosions are seen. ??Bone density is normal. ??The soft tissues are normal. Left wrist: No fracture or dislocation is present. The joint spaces are normal. No erosions are seen. ??Bone density is normal. ??The soft tissues are normal. Right knee: No acute fracture or dislocation is present. No erosions are seen. The joint spaces are normal. There is no effusion. Left knee: No acute fracture or dislocation is present. No erosions are seen. The joint spaces are normal. There is no effusion. Right ankle: No fracture or dislocation is present. The joint spaces are normal. No erosions are seen. ??Bone density is normal. A moderate-sized plantar calcaneal spur is visible. There are several calcifications in the plantar soft tissues of the hindfoot. Left ankle: No fracture or dislocation is present. The joint spaces are normal. No erosions are seen. ??Bone density is normal. ??The soft tissues are normal. There is a small plantar calcaneal spur. Right foot: No fracture or dislocation is present. The joint spaces are normal. Small subchondral cysts in the first proximal phalanx head. No erosions are seen. ??Bone density is normal. ??The soft tissues are normal. ??Tip 2 os navicularis. Left foot: No fracture or dislocation is present. The joint spaces are normal. No erosions are seen. ??Bone density is normal. ??The soft tissues are normal. Type 2 os navicularis noted. Sacroiliac joints: There is no erosion, widening, sclerosis, narrowing, or ankylosis of either sacroiliac joint. There is no fracture. The hip joint spaces are normal. Procedure Note Sylvain French MD - 02/07/2022 Exam: 1.XR HAND RIGHT 3VW 2.XR ANKLE LEFT 2VW 3.XR WRIST RIGHT 2VW 4.XR WRIST LEFT 2VW 5.XR KNEE RIGHT 3VW 6.XR KNEE LEFT 3VW 7.XR SI JOINTS 3VW 8.XR FOOT RIGHT 3VW 9.XR FOOT LEFT 3VW 10.XR HAND LEFT 3VW 11.XR ANKLE RIGHT 2VW History: M25.50: Arthralgia, unspecified joint R21: Rash Comparison: None. Findings: Right hand: No fracture or dislocation is present. The joint spaces are normal. No erosions are seen. Bone density is normal. The soft tissues arenormal. Left hand: No fracture or dislocation is present. The joint spaces are normal. No erosions are seen. Bone density is normal. The soft tissues arenormal. Right wrist: No fracture or dislocation is present. The joint spaces are normal. No erosions are seen. Bone density is normal. The soft tissues arenormal. Left wrist: No fracture or dislocation is present. The joint spaces are normal. No erosions are seen. Bone density is normal. The soft tissues arenormal. Right knee: No acute fracture or dislocation is present. No erosions are seen. The joint spaces are normal. There is no effusion. Left knee: No acute fracture or dislocation is present. No erosions are seen. The joint spaces are normal. There is no effusion. Right ankle: No fracture or dislocation is present. The joint spaces are normal. No erosions are seen. Bone density is normal. A moderate-sized plantar calcaneal spur is visible. There are several calcifications in theplantar soft tissues of the hindfoot. Left ankle: No fracture or dislocation is present. The joint spaces are normal. No erosions are seen. Bone density is normal. The soft tissues arenormal. There is a small plantar calcaneal spur. Right foot: No fracture or dislocation is present. The joint spaces are normal.Small subchondral cysts in the first proximal phalanx head. No erosions are seen. Bone density is normal. The soft tissues are normal. Tip 2 os navicularis. Left foot: No fracture or dislocation is present. The joint spaces are normal. No erosions are seen. Bone density is normal. The soft tissues arenormal. Type 2 os navicularis noted. Sacroiliac joints: There is no erosion, widening, sclerosis, narrowing, or ankylosis of either sacroiliac joint. There is no fracture. The hip joint spaces are normal. IMPRESSION: 1. Right and left hands, wrists, knees, and feet: Normal. 2. Right and left ankles: Calcaneal spurs. No evidence of arthritis. 3. Sacroiliac joints: Normal. This report was electronically signed by SYLVAIN FRENCH MD on02/07/2022 9:52 AM . Dede Causey MD DIAGNOSTIC IMAG ING ORDERABLES * XR HAND RIGHT 3VW OR MORE (02/07/2022 9:44 AM CDT) Anatomical Region Laterality Modality Wrist / Hand Radiographic Jennifer ging 02/07/2022 9:46 AM CDT Impressions 02/07/2022 9:52 AM CDT IMPRESSION: 1. Right and left hands, wrists, knees, and feet: Normal. 2. Right and left ankles: Calcaneal spurs. No evidence of arthritis. 3. Sacroiliac joints: Normal. This report was electronically signed by SYLVAIN FRENCH MD ??on 02/07/2022 9:52 AM . Narrative 02/07/2022 9:52 AM CDT Exam: 1.XR HAND RIGHT 3VW 2.XR ANKLE LEFT 2VW 3.XR WRIST RIGHT 2VW 4.XR WRIST LEFT 2VW 5.XR KNEE RIGHT 3VW 6.XR KNEE LEFT 3VW 7.XR SI JOINTS 3VW 8.XR FOOT RIGHT 3VW 9.XR FOOT LEFT 3VW 10.XR HAND LEFT 3VW 11.XR ANKLE RIGHT 2VW History: ??M25.50: Arthralgia, unspecified joint R21: Rash Comparison: None. Findings: Right hand: No fracture or dislocation is present. The joint spaces are normal. No erosions are seen. ??Bone density is normal. ??The soft tissues are normal. Left hand: No fracture or dislocation is present. The joint spaces are normal. No erosions are seen. ??Bone density is normal. ??The soft tissues are normal. Right wrist: No fracture or dislocation is present. The joint spaces are normal. No erosions are seen. ??Bone density is normal. ??The soft tissues are normal. Left wrist: No fracture or dislocation is present. The joint spaces are normal. No erosions are seen. ??Bone density is normal. ??The soft tissues are normal. Right knee: No acute fracture or dislocation is present. No erosions are seen. The joint spaces are normal. There is no effusion. Left knee: No acute fracture or dislocation is present. No erosions are seen. The joint spaces are normal. There is no effusion. Right ankle: No fracture or dislocation is present. The joint spaces are normal. No erosions are seen. ??Bone density is normal. A moderate-sized plantar calcaneal spur is visible. There are several calcifications in the plantar soft tissues of the hindfoot. Left ankle: No fracture or dislocation is present. The joint spaces are normal. No erosions are seen. ??Bone density is normal. ??The soft tissues are normal. There is a small plantar calcaneal spur. Right foot: No fracture or dislocation is present. The joint spaces are normal. Small subchondral cysts in the first proximal phalanx head. No erosions are seen. ??Bone density is normal. ??The soft tissues are normal. ??Tip 2 os navicularis. Left foot: No fracture or dislocation is present. The joint spaces are normal. No erosions are seen. ??Bone density is normal. ??The soft tissues are normal. Type 2 os navicularis noted. Sacroiliac joints: There is no erosion, widening, sclerosis, narrowing, or ankylosis of either sacroiliac joint. There is no fracture. The hip joint spaces are normal. Procedure Note Sylvain French MD - 02/07/2022 Exam: 1.XR HAND RIGHT 3VW 2.XR ANKLE LEFT 2VW 3.XR WRIST RIGHT 2VW 4.XR WRIST LEFT 2VW 5.XR KNEE RIGHT 3VW 6.XR KNEE LEFT 3VW 7.XR SI JOINTS 3VW 8.XR FOOT RIGHT 3VW 9.XR FOOT LEFT 3VW 10.XR HAND LEFT 3VW 11.XR ANKLE RIGHT 2VW History: M25.50: Arthralgia, unspecified joint R21: Rash Comparison: None. Findings: Right hand: No fracture or dislocation is present. The joint spaces are normal. No erosions are seen. Bone density is normal. The soft tissues arenormal. Left hand: No fracture or dislocation is present. The joint spaces are normal. No erosions are seen. Bone density is normal. The soft tissues arenormal. Right wrist: No fracture or dislocation is present. The joint spaces are normal. No erosions are seen. Bone density is normal. The soft tissues arenormal. Left wrist: No fracture or dislocation is present. The joint spaces are normal. No erosions are seen. Bone density is normal. The soft tissues arenormal. Right knee: No acute fracture or dislocation is present. No erosions are seen. The joint spaces are normal. There is no effusion. Left knee: No acute fracture or dislocation is present. No erosions are seen. The joint spaces are normal. There is no effusion. Right ankle: No fracture or dislocation is present. The joint spaces are normal. No erosions are seen. Bone density is normal. A moderate-sized plantar calcaneal spur is visible. There are several calcifications in theplantar soft tissues of the hindfoot. Left ankle: No fracture or dislocation is present. The joint spaces are normal. No erosions are seen. Bone density is normal. The soft tissues arenormal. There is a small plantar calcaneal spur. Right foot: No fracture or dislocation is present. The joint spaces are normal.Small subchondral cysts in the first proximal phalanx head. No erosions are seen. Bone density is normal. The soft tissues are normal. Tip 2 os navicularis. Left foot: No fracture or dislocation is present. The joint spaces are normal. No erosions are seen. Bone density is normal. The soft tissues arenormal. Type 2 os navicularis noted. Sacroiliac joints: There is no erosion, widening, sclerosis, narrowing, or ankylosis of either sacroiliac joint. There is no fracture. The hip joint spaces are normal. IMPRESSION: 1. Right and left hands, wrists, knees, and feet: Normal. 2. Right and left ankles: Calcaneal spurs. No evidence of arthritis. 3. Sacroiliac joints: Normal. This report was electronically signed by SYLVAIN FRENCH MD on02/07/2022 9:52 AM . Dede Causey MD DIAGNOSTIC IMAG ING ORDERABLES * XR HAND LEFT 3VW OR MORE (02/07/2022 9:44 AM CDT) Anatomical Region Laterality Modality Wrist / Hand Radiographic Jennifer ging 02/07/2022 9:46 AM CDT Impressions 02/07/2022 9:52 AM CDT IMPRESSION: 1. Right and left hands, wrists, knees, and feet: Normal. 2. Right and left ankles: Calcaneal spurs. No evidence of arthritis. 3. Sacroiliac joints: Normal. This report was electronically signed by SYLVAIN FRENCH MD ??on 02/07/2022 9:52 AM . Narrative 02/07/2022 9:52 AM CDT Exam: 1.XR HAND RIGHT 3VW 2.XR ANKLE LEFT 2VW 3.XR WRIST RIGHT 2VW 4.XR WRIST LEFT 2VW 5.XR KNEE RIGHT 3VW 6.XR KNEE LEFT 3VW 7.XR SI JOINTS 3VW 8.XR FOOT RIGHT 3VW 9.XR FOOT LEFT 3VW 10.XR HAND LEFT 3VW 11.XR ANKLE RIGHT 2VW History: ??M25.50: Arthralgia, unspecified joint R21: Rash Comparison: None. Findings: Right hand: No fracture or dislocation is present. The joint spaces are normal. No erosions are seen. ??Bone density is normal. ??The soft tissues are normal. Left hand: No fracture or dislocation is present. The joint spaces are normal. No erosions are seen. ??Bone density is normal. ??The soft tissues are normal. Right wrist: No fracture or dislocation is present. The joint spaces are normal. No erosions are seen. ??Bone density is normal. ??The soft tissues are normal. Left wrist: No fracture or dislocation is present. The joint spaces are normal. No erosions are seen. ??Bone density is normal. ??The soft tissues are normal. Right knee: No acute fracture or dislocation is present. No erosions are seen. The joint spaces are normal. There is no effusion. Left knee: No acute fracture or dislocation is present. No erosions are seen. The joint spaces are normal. There is no effusion. Right ankle: No fracture or dislocation is present. The joint spaces are normal. No erosions are seen. ??Bone density is normal. A moderate-sized plantar calcaneal spur is visible. There are several calcifications in the plantar soft tissues of the hindfoot. Left ankle: No fracture or dislocation is present. The joint spaces are normal. No erosions are seen. ??Bone density is normal. ??The soft tissues are normal. There is a small plantar calcaneal spur. Right foot: No fracture or dislocation is present. The joint spaces are normal. Small subchondral cysts in the first proximal phalanx head. No erosions are seen. ??Bone density is normal. ??The soft tissues are normal. ??Tip 2 os navicularis. Left foot: No fracture or dislocation is present. The joint spaces are normal. No erosions are seen. ??Bone density is normal. ??The soft tissues are normal. Type 2 os navicularis noted. Sacroiliac joints: There is no erosion, widening, sclerosis, narrowing, or ankylosis of either sacroiliac joint. There is no fracture. The hip joint spaces are normal. Procedure Note Sylvain French MD - 02/07/2022 Exam: 1.XR HAND RIGHT 3VW 2.XR ANKLE LEFT 2VW 3.XR WRIST RIGHT 2VW 4.XR WRIST LEFT 2VW 5.XR KNEE RIGHT 3VW 6.XR KNEE LEFT 3VW 7.XR SI JOINTS 3VW 8.XR FOOT RIGHT 3VW 9.XR FOOT LEFT 3VW 10.XR HAND LEFT 3VW 11.XR ANKLE RIGHT 2VW History: M25.50: Arthralgia, unspecified joint R21: Rash Comparison: None. Findings: Right hand: No fracture or dislocation is present. The joint spaces are normal. No erosions are seen. Bone density is normal. The soft tissues arenormal. Left hand: No fracture or dislocation is present. The joint spaces are normal. No erosions are seen. Bone density is normal. The soft tissues arenormal. Right wrist: No fracture or dislocation is present. The joint spaces are normal. No erosions are seen. Bone density is normal. The soft tissues arenormal. Left wrist: No fracture or dislocation is present. The joint spaces are normal. No erosions are seen. Bone density is normal. The soft tissues arenormal. Right knee: No acute fracture or dislocation is present. No erosions are seen. The joint spaces are normal. There is no effusion. Left knee: No acute fracture or dislocation is present. No erosions are seen. The joint spaces are normal. There is no effusion. Right ankle: No fracture or dislocation is present. The joint spaces are normal. No erosions are seen. Bone density is normal. A moderate-sized plantar calcaneal spur is visible. There are several calcifications in theplantar soft tissues of the hindfoot. Left ankle: No fracture or dislocation is present. The joint spaces are normal. No erosions are seen. Bone density is normal. The soft tissues arenormal. There is a small plantar calcaneal spur. Right foot: No fracture or dislocation is present. The joint spaces are normal.Small subchondral cysts in the first proximal phalanx head. No erosions are seen. Bone density is normal. The soft tissues are normal. Tip 2 os navicularis. Left foot: No fracture or dislocation is present. The joint spaces are normal. No erosions are seen. Bone density is normal. The soft tissues arenormal. Type 2 os navicularis noted. Sacroiliac joints: There is no erosion, widening, sclerosis, narrowing, or ankylosis of either sacroiliac joint. There is no fracture. The hip joint spaces are normal. IMPRESSION: 1. Right and left hands, wrists, knees, and feet: Normal. 2. Right and left ankles: Calcaneal spurs. No evidence of arthritis. 3. Sacroiliac joints: Normal. This report was electronically signed by SYLVAIN FRENCH MD on02/07/2022 9:52 AM . Dede Causey MD DIAGNOSTIC IMAG ING ORDERABLES * XR WRIST RIGHT 2VW (02/07/2022 9:44 AM CDT) Anatomical Region Laterality Modality Wrist / Hand Radiographic Jennifer ging 02/07/2022 9:46 AM CDT Impressions 02/07/2022 9:52 AM CDT IMPRESSION: 1. Right and left hands, wrists, knees, and feet: Normal. 2. Right and left ankles: Calcaneal spurs. No evidence of arthritis. 3. Sacroiliac joints: Normal. This report was electronically signed by SYLVAIN FRENCH MD ??on 02/07/2022 9:52 AM . Narrative 02/07/2022 9:52 AM CDT Exam: 1.XR HAND RIGHT 3VW 2.XR ANKLE LEFT 2VW 3.XR WRIST RIGHT 2VW 4.XR WRIST LEFT 2VW 5.XR KNEE RIGHT 3VW 6.XR KNEE LEFT 3VW 7.XR SI JOINTS 3VW 8.XR FOOT RIGHT 3VW 9.XR FOOT LEFT 3VW 10.XR HAND LEFT 3VW 11.XR ANKLE RIGHT 2VW History: ??M25.50: Arthralgia, unspecified joint R21: Rash Comparison: None. Findings: Right hand: No fracture or dislocation is present. The joint spaces are normal. No erosions are seen. ??Bone density is normal. ??The soft tissues are normal. Left hand: No fracture or dislocation is present. The joint spaces are normal. No erosions are seen. ??Bone density is normal. ??The soft tissues are normal. Right wrist: No fracture or dislocation is present. The joint spaces are normal. No erosions are seen. ??Bone density is normal. ??The soft tissues are normal. Left wrist: No fracture or dislocation is present. The joint spaces are normal. No erosions are seen. ??Bone density is normal. ??The soft tissues are normal. Right knee: No acute fracture or dislocation is present. No erosions are seen. The joint spaces are normal. There is no effusion. Left knee: No acute fracture or dislocation is present. No erosions are seen. The joint spaces are normal. There is no effusion. Right ankle: No fracture or dislocation is present. The joint spaces are normal. No erosions are seen. ??Bone density is normal. A moderate-sized plantar calcaneal spur is visible. There are several calcifications in the plantar soft tissues of the hindfoot. Left ankle: No fracture or dislocation is present. The joint spaces are normal. No erosions are seen. ??Bone density is normal. ??The soft tissues are normal. There is a small plantar calcaneal spur. Right foot: No fracture or dislocation is present. The joint spaces are normal. Small subchondral cysts in the first proximal phalanx head. No erosions are seen. ??Bone density is normal. ??The soft tissues are normal. ??Tip 2 os navicularis. Left foot: No fracture or dislocation is present. The joint spaces are normal. No erosions are seen. ??Bone density is normal. ??The soft tissues are normal. Type 2 os navicularis noted. Sacroiliac joints: There is no erosion, widening, sclerosis, narrowing, or ankylosis of either sacroiliac joint. There is no fracture. The hip joint spaces are normal. Procedure Note Sylvani French MD - 02/07/2022 Exam: 1.XR HAND RIGHT 3VW 2.XR ANKLE LEFT 2VW 3.XR WRIST RIGHT 2VW 4.XR WRIST LEFT 2VW 5.XR KNEE RIGHT 3VW 6.XR KNEE LEFT 3VW 7.XR SI JOINTS 3VW 8.XR FOOT RIGHT 3VW 9.XR FOOT LEFT 3VW 10.XR HAND LEFT 3VW 11.XR ANKLE RIGHT 2VW History: M25.50: Arthralgia, unspecified joint R21: Rash Comparison: None. Findings: Right hand: No fracture or dislocation is present. The joint spaces are normal. No erosions are seen. Bone density is normal. The soft tissues arenormal. Left hand: No fracture or dislocation is present. The joint spaces are normal. No erosions are seen. Bone density is normal. The soft tissues arenormal. Right wrist: No fracture or dislocation is present. The joint spaces are normal. No erosions are seen. Bone density is normal. The soft tissues arenormal. Left wrist: No fracture or dislocation is present. The joint spaces are normal. No erosions are seen. Bone density is normal. The soft tissues arenormal. Right knee: No acute fracture or dislocation is present. No erosions are seen. The joint spaces are normal. There is no effusion. Left knee: No acute fracture or dislocation is present. No erosions are seen. The joint spaces are normal. There is no effusion. Right ankle: No fracture or dislocation is present. The joint spaces are normal. No erosions are seen. Bone density is normal. A moderate-sized plantar calcaneal spur is visible. There are several calcifications in theplantar soft tissues of the hindfoot. Left ankle: No fracture or dislocation is present. The joint spaces are normal. No erosions are seen. Bone density is normal. The soft tissues arenormal. There is a small plantar calcaneal spur. Right foot: No fracture or dislocation is present. The joint spaces are normal.Small subchondral cysts in the first proximal phalanx head. No erosions are seen. Bone density is normal. The soft tissues are normal. Tip 2 os navicularis. Left foot: No fracture or dislocation is present. The joint spaces are normal. No erosions are seen. Bone density is normal. The soft tissues arenormal. Type 2 os navicularis noted. Sacroiliac joints: There is no erosion, widening, sclerosis, narrowing, or ankylosis of either sacroiliac joint. There is no fracture. The hip joint spaces are normal. IMPRESSION: 1. Right and left hands, wrists, knees, and feet: Normal. 2. Right and left ankles: Calcaneal spurs. No evidence of arthritis. 3. Sacroiliac joints: Normal. This report was electronically signed by SYLVAIN FRENCH MD on02/07/2022 9:52 AM . Dede Causey MD DIAGNOSTIC IMAG ING ORDERABLES * XR WRIST LEFT 2VW (02/07/2022 9:44 AM CDT) Anatomical Region Laterality Modality Wrist / Hand Radiographic Jennifer ging 02/07/2022 9:46 AM CDT Impressions 02/07/2022 9:52 AM CDT IMPRESSION: 1. Right and left hands, wrists, knees, and feet: Normal. 2. Right and left ankles: Calcaneal spurs. No evidence of arthritis. 3. Sacroiliac joints: Normal. This report was electronically signed by SYLVAIN FRENCH MD ??on 02/07/2022 9:52 AM . Narrative 02/07/2022 9:52 AM CDT Exam: 1.XR HAND RIGHT 3VW 2.XR ANKLE LEFT 2VW 3.XR WRIST RIGHT 2VW 4.XR WRIST LEFT 2VW 5.XR KNEE RIGHT 3VW 6.XR KNEE LEFT 3VW 7.XR SI JOINTS 3VW 8.XR FOOT RIGHT 3VW 9.XR FOOT LEFT 3VW 10.XR HAND LEFT 3VW 11.XR ANKLE RIGHT 2VW History: ??M25.50: Arthralgia, unspecified joint R21: Rash Comparison: None. Findings: Right hand: No fracture or dislocation is present. The joint spaces are normal. No erosions are seen. ??Bone density is normal. ??The soft tissues are normal. Left hand: No fracture or dislocation is present. The joint spaces are normal. No erosions are seen. ??Bone density is normal. ??The soft tissues are normal. Right wrist: No fracture or dislocation is present. The joint spaces are normal. No erosions are seen. ??Bone density is normal. ??The soft tissues are normal. Left wrist: No fracture or dislocation is present. The joint spaces are normal. No erosions are seen. ??Bone density is normal. ??The soft tissues are normal. Right knee: No acute fracture or dislocation is present. No erosions are seen. The joint spaces are normal. There is no effusion. Left knee: No acute fracture or dislocation is present. No erosions are seen. The joint spaces are normal. There is no effusion. Right ankle: No fracture or dislocation is present. The joint spaces are normal. No erosions are seen. ??Bone density is normal. A moderate-sized plantar calcaneal spur is visible. There are several calcifications in the plantar soft tissues of the hindfoot. Left ankle: No fracture or dislocation is present. The joint spaces are normal. No erosions are seen. ??Bone density is normal. ??The soft tissues are normal. There is a small plantar calcaneal spur. Right foot: No fracture or dislocation is present. The joint spaces are normal. Small subchondral cysts in the first proximal phalanx head. No erosions are seen. ??Bone density is normal. ??The soft tissues are normal. ??Tip 2 os navicularis. Left foot: No fracture or dislocation is present. The joint spaces are normal. No erosions are seen. ??Bone density is normal. ??The soft tissues are normal. Type 2 os navicularis noted. Sacroiliac joints: There is no erosion, widening, sclerosis, narrowing, or ankylosis of either sacroiliac joint. There is no fracture. The hip joint spaces are normal. Procedure Note Sylvain French MD - 02/07/2022 Exam: 1.XR HAND RIGHT 3VW 2.XR ANKLE LEFT 2VW 3.XR WRIST RIGHT 2VW 4.XR WRIST LEFT 2VW 5.XR KNEE RIGHT 3VW 6.XR KNEE LEFT 3VW 7.XR SI JOINTS 3VW 8.XR FOOT RIGHT 3VW 9.XR FOOT LEFT 3VW 10.XR HAND LEFT 3VW 11.XR ANKLE RIGHT 2VW History: M25.50: Arthralgia, unspecified joint R21: Rash Comparison: None. Findings: Right hand: No fracture or dislocation is present. The joint spaces are normal. No erosions are seen. Bone density is normal. The soft tissues arenormal. Left hand: No fracture or dislocation is present. The joint spaces are normal. No erosions are seen. Bone density is normal. The soft tissues arenormal. Right wrist: No fracture or dislocation is present. The joint spaces are normal. No erosions are seen. Bone density is normal. The soft tissues arenormal. Left wrist: No fracture or dislocation is present. The joint spaces are normal. No erosions are seen. Bone density is normal. The soft tissues arenormal. Right knee: No acute fracture or dislocation is present. No erosions are seen. The joint spaces are normal. There is no effusion. Left knee: No acute fracture or dislocation is present. No erosions are seen. The joint spaces are normal. There is no effusion. Right ankle: No fracture or dislocation is present. The joint spaces are normal. No erosions are seen. Bone density is normal. A moderate-sized plantar calcaneal spur is visible. There are several calcifications in theplantar soft tissues of the hindfoot. Left ankle: No fracture or dislocation is present. The joint spaces are normal. No erosions are seen. Bone density is normal. The soft tissues arenormal. There is a small plantar calcaneal spur. Right foot: No fracture or dislocation is present. The joint spaces are normal.Small subchondral cysts in the first proximal phalanx head. No erosions are seen. Bone density is normal. The soft tissues are normal. Tip 2 os navicularis. Left foot: No fracture or dislocation is present. The joint spaces are normal. No erosions are seen. Bone density is normal. The soft tissues arenormal. Type 2 os navicularis noted. Sacroiliac joints: There is no erosion, widening, sclerosis, narrowing, or ankylosis of either sacroiliac joint. There is no fracture. The hip joint spaces are normal. IMPRESSION: 1. Right and left hands, wrists, knees, and feet: Normal. 2. Right and left ankles: Calcaneal spurs. No evidence of arthritis. 3. Sacroiliac joints: Normal. This report was electronically signed by SYLVAIN FRENCH MD on02/07/2022 9:52 AM . Dede Causey MD DIAGNOSTIC IMAG ING ORDERABLES * XR SI JOINTS 3VW OR MORE (02/07/2022 9:44 AM CDT) Anatomical Region Laterality Modality Pelvis, Lower Extremity Radiogra [facility] 02/07/2022 9:46 AM CDT Impressions 02/07/2022 9:52 AM CDT IMPRESSION: 1. Right and left hands, wrists, knees, and feet: Normal. 2. Right and left ankles: Calcaneal spurs. No evidence of arthritis. 3. Sacroiliac joints: Normal. This report was electronically signed by SYLVAIN FRENCH MD ??on 02/07/2022 9:52 AM . Narrative 02/07/2022 9:52 AM CDT Exam: 1.XR HAND RIGHT 3VW 2.XR ANKLE LEFT 2VW 3.XR WRIST RIGHT 2VW 4.XR WRIST LEFT 2VW 5.XR KNEE RIGHT 3VW 6.XR KNEE LEFT 3VW 7.XR SI JOINTS 3VW 8.XR FOOT RIGHT 3VW 9.XR FOOT LEFT 3VW 10.XR HAND LEFT 3VW 11.XR ANKLE RIGHT 2VW History: ??M25.50: Arthralgia, unspecified joint R21: Rash Comparison: None. Findings: Right hand: No fracture or dislocation is present. The joint spaces are normal. No erosions are seen. ??Bone density is normal. ??The soft tissues are normal. Left hand: No fracture or dislocation is present. The joint spaces are normal. No erosions are seen. ??Bone density is normal. ??The soft tissues are normal. Right wrist: No fracture or dislocation is present. The joint spaces are normal. No erosions are seen. ??Bone density is normal. ??The soft tissues are normal. Left wrist: No fracture or dislocation is present. The joint spaces are normal. No erosions are seen. ??Bone density is normal. ??The soft tissues are normal. Right knee: No acute fracture or dislocation is present. No erosions are seen. The joint spaces are normal. There is no effusion. Left knee: No acute fracture or dislocation is present. No erosions are seen. The joint spaces are normal. There is no effusion. Right ankle: No fracture or dislocation is present. The joint spaces are normal. No erosions are seen. ??Bone density is normal. A moderate-sized plantar calcaneal spur is visible. There are several calcifications in the plantar soft tissues of the hindfoot. Left ankle: No fracture or dislocation is present. The joint spaces are normal. No erosions are seen. ??Bone density is normal. ??The soft tissues are normal. There is a small plantar calcaneal spur. Right foot: No fracture or dislocation is present. The joint spaces are normal. Small subchondral cysts in the first proximal phalanx head. No erosions are seen. ??Bone density is normal. ??The soft tissues are normal. ??Tip 2 os navicularis. Left foot: No fracture or dislocation is present. The joint spaces are normal. No erosions are seen. ??Bone density is normal. ??The soft tissues are normal. Type 2 os navicularis noted. Sacroiliac joints: There is no erosion, widening, sclerosis, narrowing, or ankylosis of either sacroiliac joint. There is no fracture. The hip joint spaces are normal. Procedure Note Sylvain French MD - 02/07/2022 Exam: 1.XR HAND RIGHT 3VW 2.XR ANKLE LEFT 2VW 3.XR WRIST RIGHT 2VW 4.XR WRIST LEFT 2VW 5.XR KNEE RIGHT 3VW 6.XR KNEE LEFT 3VW 7.XR SI JOINTS 3VW 8.XR FOOT RIGHT 3VW 9.XR FOOT LEFT 3VW 10.XR HAND LEFT 3VW 11.XR ANKLE RIGHT 2VW History: M25.50: Arthralgia, unspecified joint R21: Rash Comparison: None. Findings: Right hand: No fracture or dislocation is present. The joint spaces are normal. No erosions are seen. Bone density is normal. The soft tissues arenormal. Left hand: No fracture or dislocation is present. The joint spaces are normal. No erosions are seen. Bone density is normal. The soft tissues arenormal. Right wrist: No fracture or dislocation is present. The joint spaces are normal. No erosions are seen. Bone density is normal. The soft tissues arenormal. Left wrist: No fracture or dislocation is present. The joint spaces are normal. No erosions are seen. Bone density is normal. The soft tissues arenormal. Right knee: No acute fracture or dislocation is present. No erosions are seen. The joint spaces are normal. There is no effusion. Left knee: No acute fracture or dislocation is present. No erosions are seen. The joint spaces are normal. There is no effusion. Right ankle: No fracture or dislocation is present. The joint spaces are normal. No erosions are seen. Bone density is normal. A moderate-sized plantar calcaneal spur is visible. There are several calcifications in theplantar soft tissues of the hindfoot. Left ankle: No fracture or dislocation is present. The joint spaces are normal. No erosions are seen. Bone density is normal. The soft tissues arenormal. There is a small plantar calcaneal spur. Right foot: No fracture or dislocation is present. The joint spaces are normal.Small subchondral cysts in the first proximal phalanx head. No erosions are seen. Bone density is normal. The soft tissues are normal. Tip 2 os navicularis. Left foot: No fracture or dislocation is present. The joint spaces are normal. No erosions are seen. Bone density is normal. The soft tissues arenormal. Type 2 os navicularis noted. Sacroiliac joints: There is no erosion, widening, sclerosis, narrowing, or ankylosis of either sacroiliac joint. There is no fracture. The hip joint spaces are normal. IMPRESSION: 1. Right and left hands, wrists, knees, and feet: Normal. 2. Right and left ankles: Calcaneal spurs. No evidence of arthritis. 3. Sacroiliac joints: Normal. This report was electronically signed by SYLVAIN FRENCH MD on02/07/2022 9:52 AM . Dede Causey MD DIAGNOSTIC IMAG ING ORDERABLES Care Teams Rn Icu Relationship Specialty Start Date End Date Joey Hurley MD [address] [place] [address] PCP - General 02/04/22
--- OUTSIDE RECORDS SUMMARY | 2024-10-24 01:48 | XMS_ITS | Clinical Summary ---
Author Organization [facility] Address [address] [place] [address] Care Team Providers Care Furnace Stock Inspector Name Role Phone Joey Hurley MD Primary Care Provider [phone] Source Comments [facility],non-owned Affiliates and Associated Physician Practices is amultiple site organization consisting of ambulatory clinics and hospital sitesin [place], [place], [place] and [place]. This disclosure is being madepursuant to the Care Everywhere program and may not contain all information available regarding this patient. Last updated 18.[facility] Allergies No known active allergies Medications * [...] Active Active Problems No known active problems Family History Medical History Relation Name Comments Arthritis - Rheumatoid Mother Arthritis - Rheumatoid Paternal Grandmother Psoriasis Paternal Grandmother Relation Name Status Comments Mother Paternal Grandmother Social History Tobacco Use Types Packs/Day Years [...] 06/26/2022 3:29 PM CDT Plan of Treatment Health Maintenance Due Date Last Done Comments COLOGUARD (AGES 45-75) - COL ON CA SCREENING 1979 COLON MONITORING 1979 COLONOSCOPY - COLON CA SCREENING 1979 CT COLONOGRAPHY - COLON CA SCREENING 1979 Colorectal Cancer Screening 1979 FIT - COLON CA SCREENING 1979 FLEX SIG - COLON CA SCREENING 1979 LIPID TESTING 1979 MAMMOGRAM 1979 PAP SMEAR 1979 HIV SCREENING 1994 HEPATITIS C SCREENING 03/31/1997 DTAP/TDAP/TD VACCINES (1 - Tdap) 1998 HEPATITIS B VACCINE (1 of 3 - 19+ 3-dose series) 1998 COVID-19 VACCINE (2023-2 5 season) 2024 08/05/2021, 10/25/2020, 09/27/2020 INFLUENZA VACCINE (#1) 2024 DEPRESSION SCREENING 10/01/2024 04/19/2022 SCREENING FOR DIABETES 02/07/2025 02/07/2022 ZOSTER VACCINE (1 of 2) 2029 HIB VACCINE Aged Out No longer eligi ble based on patient's age to complete this topic HPV VACCINE Aged Out No longer eligi ble based on patient's age to complete this topic MENINGOCOCCAL (Group B) VACCINE Aged Out No longer eligible b ased on patient's age to complete this topic MENINGOCOCCAL VACCINE Aged Out No loraine mariam eligible based on patient's age to complete this topic PNEUMOCOCCAL VACCINE Aged Out No long er eligible based on patient's age to complete this topic Procedures Procedure Name Priority Date/Time Associated Diagnosis Comments COMPREHENSIVE METABOLIC PANEL Routine 02/07/2022 9:57 AM CDT Arthralgia, unspecified joint Rash from Last 3 Months or Most Recently Relevant to Health Maintenance Results * (ABNORMAL) COMPREHENSIVE METABOLIC PANEL (02/07/2022 9:57 AM CDT) BUN 15 7 - 26 mg/dL 02/07/2022 10:59 AM [facility] Creatinine 0.56 0.56 - 0.96 mg/dL 02/07/2022 10:59 AM [facility] Sodium 138 136 - 145 mmol/L 02/07/2022 10:59 AM [facility] Potassium 4.0 3.5 - 4.5 mmol/L 02/07/2022 10:59 AM [facility] Chloride 104 98 - 107 mmol/L 02/07/2022 10:59 AM [facility] CO2 26 22 - 29 mmol/L 02/07/2022 10:59 AM [facility] Glucose 97 70 - 115 mg/dL 02/07/2022 10:59 AM [facility] Calcium 9.1 8.4 - 10.2 mg/dL 02/07/2022 10:59 AM [facility] Protein Total 7.4 6.0 - 8.3 g/dL 02/07/2022 10:59 AM [facility] Albumin 3.6 3.4 - 5.0 g/dL 02/07/2022 10:59 AM [facility] Bilirubin Total 1.2 0.2 - 1.2 mg/dL 02/07/2022 10:59 AM [facility] Alkaline Phosphatase 88 40 - 150 U/L 02/07/2022 10:59 AM [facility] ALT 41 5 - 55 U/L 02/07/2022 10:59 AM [facility] AST 35(H) 5 - 34 U/L 02/07/2022 10:59 AM [facility] Anion Gap 12 8 - 18 02/07/2022 10:59 AM [facility] BUN/Creatinine Ratio 27(H) 7 - 23 02/07/2022 10:59 AM [facility] Osmolality Calculated 287 270 - 300 mOsm/kg 02/07/2022 10:59 AM [facility] Albumin/Globulin Ratio 0.9(L) 1.1 - 2.3 02/07/2022 10:59 AM [facility] eGFR by CKD-EPI >90 >=90 mL/min/1.7 3 m2 02/07/2022 10:59 AM [facility] Blood BLOOD SPECIMEN / Unknown Lab Venipuncture / Unknown 02/07/2022 9:57 AM T 02/07/2022 10:28 AM [facility] Dede Causey MD LAB - CHEMISTRY ORDERABLES [facility] [address] [place] [address], [facility] [phone] from Last 3 Months or Most Recently Relevant to Health Maintenance Care Teams Furnace Stock Inspector Relationship Specialty Start Date End Date Joey Hurley MD [address] [place] [address] PCP - General 02/04/22
== END 2024-10-22 14:05 | disposition home or self-care (01) ==
PROVIDERS: PCP Internal Medicine; Visit Provider Nurse Practitioner Obstetrics & Gynecology
DX: N92.0 Excessive and frequent menstruation with regular cycle (principal)
CPT/HCPCS: 36415; 80053; 82306; 83001; 83002; 83036; 83525; 84146; 84443; 85025

== ENCOUNTER 2024-11-10 13:17 | Outpatient (CLI) | payer OTHER, SELFPAY ==
--- NOTE | ~2024-11-10 | MM_ITS ---
EXAMINATION: MM screening kirby BI w bev HISTORY: Screening TECHNIQUE: Craniocaudal and mediolateral oblique 3-D tomosynthesis images were obtained and synthetic 2-D images were generated. CAD analysis was submitted and interpreted. COMPARISON: Comparison to multiple prior studies sequentially, with oldest reviewed study dated 07/03. BREAST PARENCHYMAL COMPOSITION: Not dense: There are scattered areas of fibroglandular density. FINDINGS: There is no evidence of suspicious mass, calcification, or architectural distortion to sugg est malignancy in either breast. There has been no suspicious interval change. IMPRESSION: 1. No mammographic evidence of malignancy. 2. Recommend routine screening mammography in one year. BI-RADS Category 1: Negative Reviewed, dictated and finalized at location B. ICAL SALES REPRESENTATIVE
--- OUTSIDE RECORDS SUMMARY | 2024-11-10 13:34 | XMS_ITS | Patient Health Summary ---
Author Organization [facility] Address [address] [place] [address] Care Team Providers Care Health And Physical Education Teacher Name Role Phone Joey Hurley MD Primary Care Provider [phone] Note from [facility],non-owned Affiliates and Associated Physician Practices is amultiple site organization consisting of ambulatory clinics and hospital sitesin [place], [place]. This disclosure is being madepursuant to the Care Everywhere program and may not contain all information available regarding this patient. Last updated 18.[facility] Allergies No known active allergies Medications * [...] 69 06/26/2022 3:29 PM CDT Temperature 37 C (98.6 F) 06/26/2022 3:29 PM CDT Respiratory Rate - [...] Culture not indicated 02/07/2022 10:[address] [facility] RBC UA None Seen None Seen, 0-2, 3-5 /HPF 02/07/2022 10:[address] [facility] WBC UA 0-5 None Seen, 0-5 /HPF 02/07/2022 10:[address] [facility] Squamous Epithelial Cells UA 0-2 None Seen, 0-2, 3-5 /HPF 02/07/2022 10:[address] [facility] Mucus UA 1+ /LPF 02/07/2022 10:[address] [facility] Urine URINE SPECIMEN OBTAINED BY CLEAN CATCH PROCEDURE / Unknown Collection / Unknown 02/07/2022 9:57 AM CDT 02/07/2022 10:[address] [facility] - 02/07/2022 10:37 AM CDT Dede Causey MD LAB - URINALYSI S ORDERABLES [facility] [address] [place] [address], [facility] [phone] * SS-A (SJOGREN'S) 52+60 ANTIBODIES (02/07/2022 9:57 AM CDT) SS-A 52 Antibody 0 0 - 40 AU/mL 02/08/2022 9:59 PM CDT [facility] [place] ([facility]) Comment: INTERPRETIVE INFORMATION: SSA-52 (Ro52) (OMID) Antibody, IgG 29 AU/mL or Less ............. Negative 30 - 40 AU/mL ................ Equivocal 41 AU/mL or Greater .......... Positive SSA-52 (Ro52) [...] - 40 AU/mL 02/08/2022 9:59 PM CDT [facility] [place] ([facility]) Comment: REFERENCE INTERVAL: SSA-60 (Ro60) (OMID) Antibody, IgG 29 AU/mL or Less ............. Negative 30 - 40 AU/mL ................ Equivocal 41 AU/mL or Greater .......... Positive Performed By: [facility] [address] [place] [address] Academic Services Coordinator: Neelima Myers MD Blood BLOOD SPECIMEN / Unknown Lab Venipuncture / Unknown 02/07/2022 9:57 AM CDT 02/07/2022 10:25 AM CDT Dede Causey MD LAB - CHEMISTRY ORDERABLES [facility] [place] [facility]) [address] * (ABNORMAL) URINALYSIS REFLEX MICROSCOPIC REFLEX CULTURE (02/07/2022 9:57 AM CDT) Color UA Yellow Straw, Yellow 02/07/2022 10:33 AM [facility] Clarity UA Clear Clear 02/07/2022 10:33 AM [facility] Specific [place] UA 1.017 1.005 - 1.030 02/07/2022 10:33 AM [facility] pH UA 5.0 5.0 - 8.0 pH 02/07/2022 10:33 AM [facility] Protein UA Negative Negative 02/07/2022 10:33 AM [facility] Glucose UA Negative Negative 02/07/2022 10:33 AM [facility] Ketone UA Negative Negative 02/07/2022 10:33 AM [facility] Bilirubin UA Negative Negative 02/07/2022 10:33 AM [facility] Blood UA 1+(A) Negative 02/07/2022 10:33 AM [facility] Nitrite UA Negative Negative 02/07/2022 10:33 AM [facility] Leukocyte Esterase Negative Negative 02/07/2022 10:33 AM [facility] Urobilinogen UA Negative Negative mg/dL 02/07/2022 10:33 AM [facility] Urine URINE SPECIMEN OBTAINED BY CLEAN CATCH PROCEDURE / Unknown Collection / Unknown 02/07/2022 9:57 AM CDT 02/07/2022 10:25 AM [facility] - 02/07/2022 10:33 AM CDT Dede Causey MD LAB - URINALYSI S ORDERABLES Performing Organization Address [facility]/[place] de Phone Number [address] [phone] [phone] * RHEUMATOID FACTOR BLOOD QUANTITATIVE (02/07/2022 9:57 AM CDT) Rheumatoid Factor <15 <30 IU/mL 02/07/2022 11:06 AM [facility] Rheumatoid Factor Screen Negative Negative 02/07/2022 11:06 AM [facility] Blood BLOOD SPECIMEN / Unknown Lab Venipuncture / Unknown 02/07/2022 9:57 AM CDT 02/07/2022 10:25 AM CDT Dede Causey MD LAB - CHEMISTRY ORDERABLES Performing Organization Address City/[facility]/ZIP Co de Phone Number [address] [address], [facility] [phone] * (ABNORMAL) C-REACTIVE PROTEIN (02/07/2022 9:57 AM CDT) C-Reactive Protein 4.1(H) <=0.5 mg/dL 02/07/2022 11:[address] [facility] Blood BLOOD SPECIMEN / Unknown Lab Venipuncture / Unknown 02/07/2022 9:57 AM CDT 02/07/2022 10:25 AM CDT Dede Causey MD LAB - CHEMISTRY ORDERABLES Performing Organization Address [facility] Co de Phone Number [address] [address], [facility] [phone] * HLA TYPING B27 (02/07/2022 9:57 AM CDT) HLA-B27 Negative Negative 02/08/2022 5:44 PM CDT [facility] ([facility]) Comment: INTERPRETIVE INFORMATION: HLA-B27 HLA-B27 is a serologically defined allele of the human HLA-B locus. The presence of the HLA-B27 antigen is strongly associated with ankylosing spondylitis and related disorders. This test was developed and its performance characteristics determined by [facility]. It has not been cleared or approved by the [place] Food and Drug Administration. This test was performed in a CLIA certified laboratory and is intended for clinical purposes. Performed by [facility], [address] [place] [id number] [email or web address], Neelima Myers MD, Lab. Director Blood BLOOD SPECIMEN / Unknown Lab Venipuncture / Unknown 02/07/2022 9:57 AM CDT 02/07/2022 10:25 AM CDT Dede Causey MD LAB - CHEMISTRY ORDERABLES Performing Organization Address City/[facility] Co de Phone Number [facility]) [address] * SS-B (SJOGREN'S) ANTIBODY (02/07/2022 9:57 AM CDT) SS-B Antibody 0 0 - 40 AU/mL 02/08/2022 9:04 PM CDT [facility] ([facility]) Comment: INTERPRETIVE INFORMATION: SSB (La) (OMID) Ab, IgG 29 AU/mL or Less ............. Negative 30 - 40 AU/mL ................ Equivocal 41 AU/mL or Greater .......... Positive SSB (La) antibody is seen in 50-60% of Sjogren syndrome cases and is specific if it is the only OMID antibody present. 15-25% of patients with systemic lupus erythematosus (SLE) and 5-10% of patients with progressive systemic sclerosis (PSS) also have this antibody. Performed By: [facility] [address] [place] [address] Academic Services Coordinator: Neelima Myers MD Blood BLOOD SPECIMEN / Unknown Lab Venipuncture / Unknown 02/07/2022 9:57 AM CDT 02/07/2022 10:25 AM CDT Dede Causey MD LAB - CHEMISTRY ORDERABLES Performing Organization Address [facility] Co de Phone Number [facility] [place] [facility]) [address] * (ABNORMAL) ERYTHROCYTE SEDIMENTATION RATE (02/07/2022 9:57 AM CDT) Erythrocyte Sedimentation Rate Westergren 40(H) 0 - 20 MM/HR 02/07/2022 10:55 AM CDT [facility] Blood BLOOD SPECIMEN / Unknown Lab Venipuncture / Unknown 02/07/2022 9:57 AM CDT 02/07/2022 10:27 AM CDT Dede Causey MD LAB - HEMATOLOG Y ORDERABLES [facility] [address] [place] [address], [facility] [phone] * (ABNORMAL) CBC WITH DIFFERENTIAL (02/07/2022 9:57 AM CDT) WBC 7.8 3.5 - 10.5 10 3/uL 02/07/2022 10:45 AM [facility] RBC 4.68 3.80 - 5.20 10 6/uL 02/07/2022 10:45 AM [facility] Hemoglobin 12.9 12.0 - 15.6 g/dL 02/07/2022 10:45 AM [facility] Hematocrit 39.9 35.0 - 45.0 % 02/07/2022 10:45 AM [facility] MCV 85.3 80.7 - 98.3 fL 02/07/2022 10:45 AM [facility] MCH 27.6 26.7 - 34.0 pg 02/07/2022 10:45 AM [facility] MCHC 32.3 30.8 - 35.9 g/dL 02/07/2022 10:45 AM [facility] Platelet Count 244 150 - 400 10 3/uL 02/07/2022 10:45 AM [facility] RDW-SD 42.8 36.0 - 50.0 fL 02/07/2022 10:45 AM [facility] RDW-CV 13.9 11.2 - 14.8 % 02/07/2022 10:45 AM [facility] MPV 10.5 9.4 - 12.9 fL 02/07/2022 10:45 AM [facility] nRBC Absolute 0.00 0 10 3/uL 02/07/2022 10:45 AM [facility] nRBC Auto 0.0 0 /100 WBC 02/07/2022 10:45 AM [facility] Neutrophils % 60.6 35.0 - 70.0 % 02/07/2022 10:45 AM [facility] Lymphocytes % 29.4 20.0 - 43.0 % 02/07/2022 10:45 AM [facility] Monocytes % 5.4 5.0 - 13.0 % 02/07/2022 10:45 AM [facility] Eosinophils % 3.1 0.0 - 6.0 % 02/07/2022 10:45 AM [facility] Basophil % 1.2 0.0 - 2.0 % 02/07/2022 10:45 AM [facility] Neutrophils Absolute 4.7 1.6 - 7.0 10 3/uL 02/07/2022 10:45 AM [facility] Lymphocyte Absolute 2.3 1.1 - 3.9 10 3/uL 02/07/2022 10:45 AM [facility] Monocytes Absolute 0.42 0.26 - 1.07 10 3/uL 02/07/2022 10:45 AM [facility] Eosinophils Absolute 0.24 0.00 - 0.47 10 3/uL 02/07/2022 10:45 AM [facility] Basophils Absolute 0.09(H) 0.00 - 0.08 10 3/uL 02/07/2022 10:45 AM [facility] Immature Granulocytes % 0.3 0.0 - 1.0 % 02/07/2022 10:45 AM [facility] Immature Granulocytes Absolute 0.02 02/07/2022 10:45 AM [facility] Blood BLOOD SPECIMEN / Unknown Lab Venipuncture / Unknown 02/07/2022 9:57 AM CDT 02/07/2022 10:27 AM CDT Dede Causey MD LAB - HEMATOLOG Y ORDERABLES [facility] [address] [place] [id number], [facility] [phone] * (ABNORMAL) COMPREHENSIVE METABOLIC PANEL (02/07/2022 9:57 AM CDT) BUN 15 7 - 26 mg/dL 02/07/2022 10:59 AM [facility] Creatinine 0.56 0.56 - 0.96 mg/dL 02/07/2022 10:59 AM [facility] Sodium 138 136 - 145 mmol/L 02/07/2022 10:59 AM [facility] Potassium 4.0 3.5 - 4.5 mmol/L 02/07/2022 10:59 AM [facility] Chloride 104 98 - 107 mmol/L 02/07/2022 10:59 AM [facility] CO2 26 22 - 29 mmol/L 02/07/2022 10:59 AM [facility] Glucose 97 70 - 115 mg/dL 02/07/2022 10:59 AM [facility] Calcium 9.1 8.4 - 10.2 mg/dL 02/07/2022 10:59 AM [facility] Protein Total 7.4 6.0 - 8.3 g/dL 02/07/2022 10:59 AM [facility] Albumin 3.6 3.4 - 5.0 g/dL 02/07/2022 10:59 AM [facility] Bilirubin Total 1.2 0.2 - 1.2 mg/dL 02/07/2022 10:59 AM [facility] Alkaline Phosphatase 88 40 - 150 U/L 02/07/2022 10:59 AM [facility] ALT 41 5 - 55 U/L 02/07/2022 10:59 AM [facility] AST 35(H) 5 - 34 U/L 02/07/2022 10:59 AM [facility] Anion Gap 12 8 - 18 02/07/2022 10:59 AM [facility] BUN/Creatinine Ratio 27(H) 7 - 23 02/07/2022 10:59 AM [facility] Osmolality Calculated 287 270 - 300 mOsm/kg 02/07/2022 10:59 AM [facility] Albumin/Globulin Ratio 0.9(L) 1.1 - 2.3 02/07/2022 10:59 AM [facility] eGFR by CKD-EPI >90 >=90 mL/min/1.7 3 m2 02/07/2022 10:59 AM [facility] Blood BLOOD SPECIMEN / Unknown Lab Venipuncture / Unknown 02/07/2022 9:57 AM CDT 02/07/2022 10:28 AM CDT Dede Causey MD LAB - CHEMISTRY ORDERABLES [facility] [address] [place] [address], [facility] [phone] * XR KNEE RIGHT 3VW (02/07/2022 9:44 AM CDT) Anatomical Region Laterality Modality Lower Extremity Radiographic Jennifer ging 02/07/2022 9:46 AM CDT Impressions 02/07/2022 9:52 AM CDT IMPRESSION: 1. Right and left hands, wrists, knees, and feet: Normal. 2. Right and left ankles: Calcaneal spurs. No evidence of arthritis. 3. Sacroiliac joints: Normal. This report was electronically signed by SYLVAIN FRENCH MD on 02/07/2022 9:52 AM . Narrative 02/07/2022 9:52 [...] is normal. The soft tissues are normal. Left hand: No fracture or dislocation is present. The joint spaces are normal. No erosions are seen. Bone density is normal. The soft tissues are normal. Right wrist: No fracture or dislocation is present. The joint spaces are normal. No erosions are seen. Bone density is normal. The soft tissues are normal. Left wrist: No fracture or dislocation is present. The joint spaces are normal. No erosions are seen. Bone density is normal. The soft tissues are normal. Right knee: No [...] is normal. The soft tissues are normal. There is a [...] is normal. The soft tissues are normal. Type 2 os [...] was electronically signed by SYLVAIN FRENCH MD on 02/07/2022 9:52 AM . Narrative 02/07/2022 9:52 [...] is normal. The soft tissues are normal. Left hand: No fracture or dislocation is present. The joint spaces are normal. No erosions are seen. Bone density is normal. The soft tissues are normal. Right wrist: No fracture or dislocation is present. The joint spaces are normal. No erosions are seen. Bone density is normal. The soft tissues are normal. Left wrist: No fracture or dislocation is present. The joint spaces are normal. No erosions are seen. Bone density is normal. The soft tissues are normal. Right knee: No [...] is normal. The soft tissues are normal. There is a [...] is normal. The soft tissues are normal. Type 2 os [...] was electronically signed by SYLVAIN FRENCH MD on 02/07/2022 9:52 AM . Narrative 02/07/2022 9:52 [...] is normal. The soft tissues are normal. Left hand: No fracture or dislocation is present. The joint spaces are normal. No erosions are seen. Bone density is normal. The soft tissues are normal. Right wrist: No fracture or dislocation is present. The joint spaces are normal. No erosions are seen. Bone density is normal. The soft tissues are normal. Left wrist: No fracture or dislocation is present. The joint spaces are normal. No erosions are seen. Bone density is normal. The soft tissues are normal. Right knee: No [...] is normal. The soft tissues are normal. There is a [...] is normal. The soft tissues are normal. Type 2 os [...] was electronically signed by SYLVAIN FRENCH MD on 02/07/2022 9:52 AM . Narrative 02/07/2022 9:52 [...] is normal. The soft tissues are normal. Left hand: No fracture or dislocation is present. The joint spaces are normal. No erosions are seen. Bone density is normal. The soft tissues are normal. Right wrist: No fracture or dislocation is present. The joint spaces are normal. No erosions are seen. Bone density is normal. The soft tissues are normal. Left wrist: No fracture or dislocation is present. The joint spaces are normal. No erosions are seen. Bone density is normal. The soft tissues are normal. Right knee: No [...] is normal. The soft tissues are normal. There is a [...] is normal. The soft tissues are normal. Type 2 os [...] was electronically signed by SYLVAIN FRENCH MD on 02/07/2022 9:52 AM . Narrative 02/07/2022 9:52 [...] is normal. The soft tissues are normal. Left hand: No fracture or dislocation is present. The joint spaces are normal. No erosions are seen. Bone density is normal. The soft tissues are normal. Right wrist: No fracture or dislocation is present. The joint spaces are normal. No erosions are seen. Bone density is normal. The soft tissues are normal. Left wrist: No fracture or dislocation is present. The joint spaces are normal. No erosions are seen. Bone density is normal. The soft tissues are normal. Right knee: No [...] is normal. The soft tissues are normal. There is a [...] is normal. The soft tissues are normal. Type 2 os [...] was electronically signed by SYLVAIN FRENCH MD on 02/07/2022 9:52 AM . Narrative 02/07/2022 9:52 [...] is normal. The soft tissues are normal. Left hand: No fracture or dislocation is present. The joint spaces are normal. No erosions are seen. Bone density is normal. The soft tissues are normal. Right wrist: No fracture or dislocation is present. The joint spaces are normal. No erosions are seen. Bone density is normal. The soft tissues are normal. Left wrist: No fracture or dislocation is present. The joint spaces are normal. No erosions are seen. Bone density is normal. The soft tissues are normal. Right knee: No [...] is normal. The soft tissues are normal. There is a [...] is normal. The soft tissues are normal. Type 2 os [...] was electronically signed by SYLVAIN FRENCH MD on 02/07/2022 9:52 AM . Narrative 02/07/2022 9:52 [...] is normal. The soft tissues are normal. Left hand: No fracture or dislocation is present. The joint spaces are normal. No erosions are seen. Bone density is normal. The soft tissues are normal. Right wrist: No fracture or dislocation is present. The joint spaces are normal. No erosions are seen. Bone density is normal. The soft tissues are normal. Left wrist: No fracture or dislocation is present. The joint spaces are normal. No erosions are seen. Bone density is normal. The soft tissues are normal. Right knee: No [...] is normal. The soft tissues are normal. There is a [...] is normal. The soft tissues are normal. Type 2 os [...] FRENCH MD on02/07/2022 9:52 AM . Dede Liz Causey MD DIAGNOSTIC IMAG ING ORDERABLES * [...] was electronically signed by SYLVAIN FRENCH MD on 02/07/2022 9:52 AM . Narrative 02/07/2022 9:52 [...] is normal. The soft tissues are normal. Left hand: No fracture or dislocation is present. The joint spaces are normal. No erosions are seen. Bone density is normal. The soft tissues are normal. Right wrist: No fracture or dislocation is present. The joint spaces are normal. No erosions are seen. Bone density is normal. The soft tissues are normal. Left wrist: No fracture or dislocation is present. The joint spaces are normal. No erosions are seen. Bone density is normal. The soft tissues are normal. Right knee: No [...] is normal. The soft tissues are normal. There is a [...] is normal. The soft tissues are normal. Type 2 os [...] was electronically signed by SYLVAIN FRENCH MD on 02/07/2022 9:52 AM . Narrative 02/07/2022 9:52 [...] is normal. The soft tissues are normal. Left hand: No fracture or dislocation is present. The joint spaces are normal. No erosions are seen. Bone density is normal. The soft tissues are normal. Right wrist: No fracture or dislocation is present. The joint spaces are normal. No erosions are seen. Bone density is normal. The soft tissues are normal. Left wrist: No fracture or dislocation is present. The joint spaces are normal. No erosions are seen. Bone density is normal. The soft tissues are normal. Right knee: No [...] is normal. The soft tissues are normal. There is a [...] is normal. The soft tissues are normal. Type 2 os [...] was electronically signed by SYLVAIN FRENCH MD on 02/07/2022 9:52 AM . Narrative 02/07/2022 9:52 [...] is normal. The soft tissues are normal. Left hand: No fracture or dislocation is present. The joint spaces are normal. No erosions are seen. Bone density is normal. The soft tissues are normal. Right wrist: No fracture or dislocation is present. The joint spaces are normal. No erosions are seen. Bone density is normal. The soft tissues are normal. Left wrist: No fracture or dislocation is present. The joint spaces are normal. No erosions are seen. Bone density is normal. The soft tissues are normal. Right knee: No [...] is normal. The soft tissues are normal. There is a [...] is normal. The soft tissues are normal. Type 2 os [...] Region Laterality Modality Pelvis, Lower Extremity Radiogra [facility] 02/07/2022 9:46 AM CDT Impressions 02/07/2022 9:52 AM CDT IMPRESSION: 1. Right and left hands, wrists, knees, and feet: Normal. 2. Right and left ankles: Calcaneal spurs. No evidence of arthritis. 3. Sacroiliac joints: Normal. This report was electronically signed by SYLVAIN FRENCH MD on 02/07/2022 9:52 AM . Narrative 02/07/2022 9:52 [...] is normal. The soft tissues are normal. Left hand: No fracture or dislocation is present. The joint spaces are normal. No erosions are seen. Bone density is normal. The soft tissues are normal. Right wrist: No fracture or dislocation is present. The joint spaces are normal. No erosions are seen. Bone density is normal. The soft tissues are normal. Left wrist: No fracture or dislocation is present. The joint spaces are normal. No erosions are seen. Bone density is normal. The soft tissues are normal. Right knee: No [...] is normal. The soft tissues are normal. There is a [...] is normal. The soft tissues are normal. Type 2 os [...] MD DIAGNOSTIC IMAG ING ORDERABLES Care Teams Health And Physical Education Teacher Relationship Specialty Start Date End Date Joey Hurley MD [address] [place] [address] PCP - General 02/04/22
--- OUTSIDE RECORDS SUMMARY | 2024-11-10 13:34 | XMS_ITS | Clinical Summary ---
Author Organization [facility] Address [address] [place] [id number] Care Team Providers Care Medical Support Specialist Name Role Phone Unavailable Primary Care [...] patient's age to complete this topic Meningococcal B Vaccine Aged Out No l onger eligible based on patient's age to complete [...]
--- OUTSIDE RECORDS SUMMARY | 2024-11-10 13:34 | XMS_ITS | Clinical Summary ---
Author Organization [facility] [employer] Address [address] [place] [address] Care Team Providers Care Road Roller Engineer Name Role Phone Joey Hurley MD Primary Care Provider [phone] Source Comments [facility] [employer],non-owned Affiliates and Associated Physician Practices is amultiple site organization consisting of ambulatory clinics and hospital sitesin [place], [place], [place] and [place]. This disclosure is being madepursuant to the Care Everywhere program and may not contain all information available regarding this patient. Last updated 18.[facility] [employer] Allergies No known active allergies Medications * [...] 7 - 26 mg/dL 02/07/2022 10:59 AM [facility] Creatinine 0.56 0.56 - 0.96 mg/dL 02/07/2022 10:59 AM [facility] Sodium 138 136 - 145 mmol/L 02/07/2022 10:59 AM [facility] Potassium 4.0 3.5 - 4.5 mmol/L 02/07/2022 10:59 AM [facility] Chloride 104 98 - 107 mmol/L 02/07/2022 10:59 AM [facility] CO2 26 22 - 29 mmol/L 02/07/2022 10:59 AM [facility] Glucose 97 70 - 115 mg/dL 02/07/2022 10:59 AM [facility] Calcium 9.1 8.4 - 10.2 mg/dL 02/07/2022 10:59 AM [facility] Protein Total 7.4 6.0 - 8.3 g/dL 02/07/2022 10:59 AM [facility] Albumin 3.6 3.4 - 5.0 g/dL 02/07/2022 10:59 AM [facility] Bilirubin Total 1.2 0.2 - 1.2 mg/dL 02/07/2022 10:59 AM [facility] Alkaline Phosphatase 88 40 - 150 U/L 02/07/2022 10:59 AM [facility] ALT 41 5 - 55 U/L 02/07/2022 10:59 AM [facility] AST 35(H) 5 - 34 U/L 02/07/2022 10:59 AM [facility] Anion Gap 12 8 - 18 02/07/2022 10:59 AM [facility] BUN/Creatinine Ratio 27(H) 7 - 23 02/07/2022 10:59 AM [facility] Osmolality Calculated 287 270 - 300 mOsm/kg 02/07/2022 10:59 AM [facility] Albumin/Globulin Ratio 0.9(L) 1.1 - 2.3 02/07/2022 10:59 AM [facility] eGFR by CKD-EPI >90 >=90 mL/min/1.7 3 m2 02/07/2022 10:59 AM [facility] Blood BLOOD SPECIMEN / Unknown Lab Venipuncture / Unknown 02/07/2022 9:57 AM T 02/07/2022 10:28 AM [facility] Dede Causey MD LAB - CHEMISTRY ORDERABLES [facility] [address] [place] [address], [facility] [phone] from Last 3 Months or Most Recently Relevant to Health Maintenance Care Teams Road Roller Engineer Relationship Specialty Start Date End Date Joey Hurley MD [address] [place], [place] [id number] PCP - General 02/04/22
--- OUTSIDE RECORDS SUMMARY | 2024-11-10 13:34 | XMS_ITS | Referral Summary ---
Author Organization [facility] [employer] Address [address] [place] [address] Care Team Providers Care Coat Hanger Shaper Machine Operator Name Role Phone Joey Hurley MD Primary Care Provider [phone] Source Comments [facility] [employer],non-owned Affiliates and Associated Physician Practices is amultiple site organization consisting of ambulatory clinics and hospital sitesin [place], [place], [place] and [place]. This disclosure is being madepursuant to the Care Everywhere program and may not contain all information available regarding this patient. Last updated 18.[facility] [employer] Allergies No known active allergies Medications * [...] 7 - 26 mg/dL 02/07/2022 10:59 AM [facility] Creatinine 0.56 0.56 - 0.96 mg/dL 02/07/2022 10:59 AM [facility] Sodium 138 136 - 145 mmol/L 02/07/2022 10:59 AM [facility] Potassium 4.0 3.5 - 4.5 mmol/L 02/07/2022 10:59 AM [facility] Chloride 104 98 - 107 mmol/L 02/07/2022 10:59 AM [facility] CO2 26 22 - 29 mmol/L 02/07/2022 10:59 AM [facility] Glucose 97 70 - 115 mg/dL 02/07/2022 10:59 AM [facility] Calcium 9.1 8.4 - 10.2 mg/dL 02/07/2022 10:59 AM [facility] Protein Total 7.4 6.0 - 8.3 g/dL 02/07/2022 10:59 AM [facility] Albumin 3.6 3.4 - 5.0 g/dL 02/07/2022 10:59 AM [facility] Bilirubin Total 1.2 0.2 - 1.2 mg/dL 02/07/2022 10:59 AM [facility] Alkaline Phosphatase 88 40 - 150 U/L 02/07/2022 10:59 AM [facility] ALT 41 5 - 55 U/L 02/07/2022 10:59 AM [facility] AST 35(H) 5 - 34 U/L 02/07/2022 10:59 AM [facility] Anion Gap 12 8 - 18 02/07/2022 10:59 AM [facility] BUN/Creatinine Ratio 27(H) 7 - 23 02/07/2022 10:59 AM [facility] Osmolality Calculated 287 270 - 300 mOsm/kg 02/07/2022 10:59 AM [facility] Albumin/Globulin Ratio 0.9(L) 1.1 - 2.3 02/07/2022 10:59 AM [facility] eGFR by CKD-EPI >90 >=90 mL/min/1.7 3 m2 02/07/2022 10:59 AM [facility] Blood BLOOD SPECIMEN / Unknown Lab Venipuncture / Unknown 02/07/2022 9:57 AM [facility] 02/07/2022 10:28 AM [facility] Dede Causey MD LAB - CHEMISTRY ORDERABLES [facility] [address] [place] [address], [facility] [phone] from Last 3 Months or Most Recently Relevant to Health Maintenance Care Teams Coat Hanger Shaper Machine Operator Relationship Specialty Start Date End Date Joey Hurley MD [address] [place] [address] PCP - General 02/04/22
== END 2024-11-10 13:18 | disposition home or self-care (01) ==
LOC: CHSIMG 13:19
PROVIDERS: PCP Internal Medicine; Visit Provider Nurse Practitioner Obstetrics & Gynecology
DX: Z12.31 Encounter for screening mammogram for malignant neoplasm of breast (principal)
CPT/HCPCS: 77063; 77067

== ENCOUNTER 2024-11-26 09:09 | Outpatient (CLI) | payer OTHER, SELFPAY ==
--- OUTSIDE RECORDS SUMMARY | 2024-11-26 09:52 | XMS_ITS | Clinical Summary ---
Author Organization [facility] [employer] Address [address] [place] [address] Care Team Providers Care Shared Services And Outsourcing Manager Name Role Phone Joey Hurley MD Primary Care Provider [phone] [facility] [employer],non-owned Affiliates and Associated Physician Practices is amultiple site organization consisting of ambulatory clinics and hospital sitesin [place], [place], [place] and [place]. This disclosure is being madepursuant to the Care Everywhere program and may not contain all information available regarding this patient. Last updated 18.[facility] [employer] Allergies No known active allergies Medications * [...] 7 - 26 mg/dL 02/07/2022 10:59 AM [facility] Creatinine 0.56 0.56 - 0.96 mg/dL 02/07/2022 10:59 AM [facility] Sodium 138 136 - 145 mmol/L 02/07/2022 10:59 AM [facility] Potassium 4.0 3.5 - 4.5 mmol/L 02/07/2022 10:59 AM [facility] Chloride 104 98 - 107 mmol/L 02/07/2022 10:59 AM [facility] CO2 26 22 - 29 mmol/L 02/07/2022 10:59 AM [facility] Glucose 97 70 - 115 mg/dL 02/07/2022 10:59 AM [facility] Calcium 9.1 8.4 - 10.2 mg/dL 02/07/2022 10:59 AM [facility] Protein Total 7.4 6.0 - 8.3 g/dL 02/07/2022 10:59 AM [facility] Albumin 3.6 3.4 - 5.0 g/dL 02/07/2022 10:59 AM [facility] Bilirubin Total 1.2 0.2 - 1.2 mg/dL 02/07/2022 10:59 AM [facility] Alkaline Phosphatase 88 40 - 150 U/L 02/07/2022 10:59 AM [facility] ALT 41 5 - 55 U/L 02/07/2022 10:59 AM [facility] AST 35(H) 5 - 34 U/L 02/07/2022 10:59 AM [facility] Anion Gap 12 8 - 18 02/07/2022 10:59 AM [facility] BUN/Creatinine Ratio 27(H) 7 - 23 02/07/2022 10:59 AM [facility] Osmolality Calculated 287 270 - 300 mOsm/kg 02/07/2022 10:59 AM [facility] Albumin/Globulin Ratio 0.9(L) 1.1 - 2.3 02/07/2022 10:59 AM [facility] eGFR by CKD-EPI >90 >=90 mL/min/1.7 3 m2 02/07/2022 10:59 AM [facility] Blood BLOOD SPECIMEN / Unknown Lab Venipuncture / Unknown 02/07/2022 9:57 AM T 02/07/2022 10:[address] [facility] Dede Causey MD LAB - CHEMISTRY ORDERABLES [facility] [address] [place] [address], [facility] [phone] from Last 3 Months or Most Recently Relevant to Health Maintenance Care Teams Shared Services And Outsourcing Manager Relationship Specialty Start Date End Date Joey Hurley MD [address] [place], [place] [id number] PCP - General 02/04/22
--- OUTSIDE RECORDS SUMMARY | 2024-11-26 09:52 | XMS_ITS | Clinical Summary ---
Author Organization [facility] Address [address] [place] [address] Care Team Providers Care Software Systems Engineer Name Role Phone Unavailable Primary Care Provider [...]
--- OUTSIDE RECORDS SUMMARY | 2024-11-26 09:52 | XMS_ITS | Patient Health Summary ---
Author Organization [facility] Address [address] [place] [place] [address] Care Team Providers Care Greens Laborer Name Role Phone Joey Hurley MD Primary Care Provider [phone] Note from [facility],non-owned Affiliates and Associated Physician Practices is amultiple site organization consisting of ambulatory clinics and hospital sitesin [place], [place], [place] and [place]. This disclosure is being madepursuant to the Care Everywhere program and may not contain all information available regarding this patient. Last updated 18.[facility] Allergies No known active allergies Medications [...] Culture not indicated 02/07/2022 10:37 AM CDT [facility] RBC UA None Seen None Seen, 0-2, 3-5 /HPF 02/07/2022 10:37 AM CDT [facility] WBC UA 0-5 None Seen, 0-5 /HPF 02/07/2022 10:37 AM CDT [facility] Squamous Epithelial Cells UA 0-2 None Seen, 0-2, 3-5 /HPF 02/07/2022 10:37 AM CDT [facility] Mucus UA 1+ /LPF 02/07/2022 10:37 AM CDT [facility] Urine URINE SPECIMEN OBTAINED BY CLEAN CATCH PROCEDURE / Unknown Collection / Unknown 02/07/2022 9:57 AM CDT 02/07/2022 10:25 AM CDT Narrative [facility] - 02/07/2022 10:37 AM CDT Dede Causey MD LAB - URINALYSI S ORDERABLES [facility] [address] [place] [address], [facility] [phone] * SS-A (SJOGREN'S) 52+60 ANTIBODIES (02/07/2022 9:57 AM CDT) SS-A 52 Antibody 0 0 - 40 AU/mL 02/08/2022 9:59 PM CDT [facility] Room ([facility]) Comment: INTERPRETIVE INFORMATION: SSA-52 (Ro52) (OMID) [...] - 40 AU/mL 02/08/2022 9:59 PM CDT [facility] Room ([facility]) Comment: REFERENCE INTERVAL: SSA-60 (Ro60) (OMID) Antibody, IgG 29 AU/mL or Less ............. Negative 30 - 40 AU/mL ................ Equivocal 41 AU/mL or Greater .......... Positive Performed By: [facility] [address] [place] [address] Clerk Travel Reservations: Neelima Myers MD Blood BLOOD SPECIMEN / Unknown Lab Venipuncture / Unknown 02/07/2022 9:57 AM CDT 02/07/2022 10:25 AM CDT Dede Causey MD LAB - CHEMISTRY ORDERABLES [facility] Room [facility]) [address] * (ABNORMAL) URINALYSIS REFLEX MICROSCOPIC REFLEX CULTURE (02/07/2022 9:57 AM CDT) Color UA Yellow Straw, Yellow 02/07/2022 10:33 AM [facility] Clarity UA Clear Clear 02/07/2022 10:33 AM [facility] Specific Aurora UA 1.017 1.005 - 1.030 02/07/2022 10:33 AM [facility] pH UA 5.0 5.0 - 8.0 pH 02/07/2022 10:33 AM [facility] Protein UA Negative Negative 02/07/2022 10:33 AM [facility] Glucose UA Negative Negative 02/07/2022 10:33 AM [facility] Ketone UA Negative Negative 02/07/2022 10:33 AM [facility] Bilirubin UA Negative Negative 02/07/2022 10:33 AM [facility] Blood UA 1+(A) Negative 02/07/2022 10:33 AM [facility] Nitrite UA Negative Negative 02/07/2022 10:33 AM [facility] Leukocyte Esterase Negative Negative 02/07/2022 10:33 AM [facility] Urobilinogen UA Negative Negative mg/dL 02/07/2022 10:33 AM [facility] Urine URINE SPECIMEN OBTAINED BY CLEAN CATCH PROCEDURE / Unknown Collection / Unknown 02/07/2022 9:57 AM CDT 02/07/2022 10:25 AM T [facility] - 02/07/2022 10:33 AM CDT Dede Causey MD LAB - URINALYSI S ORDERABLES Performing Organization Address [facility] de Phone Number [address] [address] [phone] * RHEUMATOID FACTOR BLOOD QUANTITATIVE (02/07/2022 9:57 AM CDT) Rheumatoid Factor <15 <30 IU/mL 02/07/2022 11:06 AM [facility] Rheumatoid Factor Screen Negative Negative 02/07/2022 11:06 AM [facility] Blood BLOOD SPECIMEN / Unknown Lab Venipuncture / Unknown 02/07/2022 9:57 AM CDT 02/07/2022 10:25 AM CDT Dede Causey MD LAB - CHEMISTRY ORDERABLES Performing Organization Address City/[facility]/ZIP Co de Phone Number [address] [address], [facility] [phone] * (ABNORMAL) C-REACTIVE PROTEIN (02/07/2022 9:57 AM CDT) C-Reactive Protein 4.1(H) <=0.5 mg/dL 02/07/2022 11:06 AM CDT [facility] Blood BLOOD SPECIMEN / Unknown Lab Venipuncture / Unknown 02/07/2022 9:57 AM CDT 02/07/2022 10:25 AM CDT Dede Causey MD LAB - CHEMISTRY ORDERABLES Performing Organization Address [facility] Co de Phone Number [address] [address], [facility] [phone] * HLA TYPING B27 (02/07/2022 9:57 AM CDT) HLA-B27 Negative Negative 02/08/2022 5:44 PM CDT [facility] ([facility]) Comment: INTERPRETIVE INFORMATION: HLA-B27 HLA-B27 is a serologically defined allele of the human HLA-B locus. The presence of the HLA-B27 antigen is strongly associated with ankylosing spondylitis and related disorders. This test was developed and its performance characteristics determined by [facility]. It has not been cleared or approved by the US Food and Drug Administration. This test was performed in a CLIA certified laboratory and is intended for clinical purposes. Performed by [facility], [address] [place] [id number] [email or web address], Neelima Myers MD, Lab. Director Blood BLOOD SPECIMEN / Unknown Lab Venipuncture / Unknown 02/07/2022 9:57 AM CDT 02/07/2022 10:25 AM CDT Dede Causey MD LAB - CHEMISTRY ORDERABLES Performing Organization Address City/[facility] Co de Phone Number [facility]) [address] * SS-B (SJOGREN'S) ANTIBODY (02/07/2022 9:57 AM CDT) SS-B Antibody 0 0 - 40 AU/mL 02/08/2022 9:04 PM CDT [facility] ([facility]) Comment: INTERPRETIVE INFORMATION: SSB (La) (OMID) [...] (PSS) also have this antibody. Performed By: [facility] [employer] [address] [place] [address] Clerk Travel Reservations: Neelima Myers MD Blood BLOOD SPECIMEN / Unknown Lab Venipuncture / Unknown 02/07/2022 9:57 AM CDT 02/07/2022 10:25 AM CDT Dede Causey MD LAB - CHEMISTRY ORDERABLES Performing Organization Address [facility] Co de Phone Number [facility] Room [facility]) [address] * (ABNORMAL) ERYTHROCYTE SEDIMENTATION RATE (02/07/2022 9:57 AM CDT) Erythrocyte Sedimentation Rate Westergren 40(H) 0 - 20 MM/HR 02/07/2022 10:55 AM CDT [facility] Blood BLOOD SPECIMEN / Unknown Lab Venipuncture / Unknown 02/07/2022 9:57 AM CDT 02/07/2022 10:27 AM CDT Dede Causey MD LAB - HEMATOLOG Y ORDERABLES [facility] [address] [place] [address], [facility] [phone] * (ABNORMAL) CBC WITH DIFFERENTIAL (02/07/2022 9:57 AM CDT) WBC 7.8 3.5 - 10.5 10 3/uL 02/07/2022 10:45 AM [facility] RBC 4.68 3.80 - 5.20 10 6/uL 02/07/2022 10:45 AM [facility] Hemoglobin 12.9 12.0 - 15.6 g/dL 02/07/2022 10:45 AM [facility] Hematocrit 39.9 35.0 - 45.0 % 02/07/2022 10:45 AM [facility] MCV 85.3 80.7 - 98.3 fL 02/07/2022 10:45 AM [facility] MCH 27.6 26.7 - 34.0 pg 02/07/2022 10:45 AM [facility] MCHC 32.3 30.8 - 35.9 g/dL 02/07/2022 10:45 AM [facility] Platelet Count 244 150 - 400 10 3/uL 02/07/2022 10:45 AM [facility] RDW-SD 42.8 36.0 - 50.0 fL 02/07/2022 10:45 AM [facility] RDW-CV 13.9 11.2 - 14.8 % 02/07/2022 10:45 AM [facility] MPV 10.5 9.4 - 12.9 fL 02/07/2022 10:45 AM [facility] nRBC Absolute 0.00 0 10 3/uL 02/07/2022 10:45 AM [facility] nRBC Auto 0.0 0 /100 WBC 02/07/2022 10:45 AM [facility] Neutrophils % 60.6 35.0 - 70.0 % 02/07/2022 10:45 AM [facility] Lymphocytes % 29.4 20.0 - 43.0 % 02/07/2022 10:45 AM [facility] Monocytes % 5.4 5.0 - 13.0 % 02/07/2022 10:45 AM [facility] Eosinophils % 3.1 0.0 - 6.0 % 02/07/2022 10:45 AM [facility] Basophil % 1.2 0.0 - 2.0 % 02/07/2022 10:45 AM [facility] Neutrophils Absolute 4.7 1.6 - 7.0 10 3/uL 02/07/2022 10:45 AM [facility] Lymphocyte Absolute 2.3 1.1 - 3.9 10 3/uL 02/07/2022 10:45 AM [facility] Monocytes Absolute 0.42 0.26 - 1.07 10 3/uL 02/07/2022 10:45 AM [facility] Eosinophils Absolute 0.24 0.00 - 0.47 10 3/uL 02/07/2022 10:45 AM [facility] Basophils Absolute 0.09(H) 0.00 - 0.08 10 3/uL 02/07/2022 10:45 AM [facility] Immature Granulocytes % 0.3 0.0 - 1.0 % 02/07/2022 10:45 AM [facility] Immature Granulocytes Absolute 0.02 02/07/2022 10:45 AM [facility] Blood BLOOD SPECIMEN / Unknown Lab Venipuncture / Unknown 02/07/2022 9:57 AM CDT 02/07/2022 10:27 AM CDT Dede Causey MD LAB - HEMATOLOG Y ORDERABLES [facility] [address] [place] [address], [facility] [phone] * (ABNORMAL) COMPREHENSIVE METABOLIC PANEL (02/07/2022 9:57 AM CDT) BUN 15 7 - 26 mg/dL 02/07/2022 10:59 AM [facility] Creatinine 0.56 0.56 - 0.96 mg/dL 02/07/2022 10:59 AM [facility] Sodium 138 136 - 145 mmol/L 02/07/2022 10:59 AM [facility] Potassium 4.0 3.5 - 4.5 mmol/L 02/07/2022 10:59 AM [facility] Chloride 104 98 - 107 mmol/L 02/07/2022 10:59 AM [facility] CO2 26 22 - 29 mmol/L 02/07/2022 10:59 AM [facility] Glucose 97 70 - 115 mg/dL 02/07/2022 10:59 AM [facility] Calcium 9.1 8.4 - 10.2 mg/dL 02/07/2022 10:59 AM [facility] Protein Total 7.4 6.0 - 8.3 g/dL 02/07/2022 10:59 AM [facility] Albumin 3.6 3.4 - 5.0 g/dL 02/07/2022 10:59 AM [facility] Bilirubin Total 1.2 0.2 - 1.2 mg/dL 02/07/2022 10:59 AM [facility] Alkaline Phosphatase 88 40 - 150 U/L 02/07/2022 10:59 AM [facility] ALT 41 5 - 55 U/L 02/07/2022 10:59 AM [facility] AST 35(H) 5 - 34 U/L 02/07/2022 10:59 AM [facility] Anion Gap 12 8 - 18 02/07/2022 10:59 AM [facility] BUN/Creatinine Ratio 27(H) 7 - 23 02/07/2022 10:59 AM [facility] Osmolality Calculated 287 270 - 300 mOsm/kg 02/07/2022 10:59 AM [facility] Albumin/Globulin Ratio 0.9(L) 1.1 - 2.3 02/07/2022 10:59 AM [facility] eGFR by CKD-EPI >90 >=90 mL/min/1.7 3 m2 02/07/2022 10:59 AM [facility] Blood BLOOD SPECIMEN / Unknown Lab Venipuncture / Unknown 02/07/2022 9:57 AM CDT 02/07/2022 10:28 AM CDT Dede Causey MD LAB - CHEMISTRY ORDERABLES [facility] [address] [place] [address], [facility] [phone] * XR KNEE RIGHT 3VW (02/07/2022 9:44 [...] Region Laterality Modality Pelvis, Lower Extremity [facility] 02/07/2022 9:46 AM CDT Impressions [...] MD DIAGNOSTIC IMAG ING ORDERABLES Care Teams Greens Laborer Relationship Specialty Start Date End Date Joey Hurley MD [address] [place] [address] PCP - General 02/04/22
--- OUTSIDE RECORDS SUMMARY | 2024-11-26 09:52 | XMS_ITS | Referral Summary ---
Author Organization [facility] [employer] Address [address] [place] [address] Care Team Providers Care Acute Care Physician Name Role Phone Joey Hurley MD Primary Care Provider [phone] Source Comments [facility] [employer] ([employer]),non-owned Affiliates and Associated Physician Practices is amultiple site organization consisting of ambulatory clinics and hospital sitesin [place], [place], [place] and [place]. This disclosure is being madepursuant to the Care Everywhere program and may not contain all information available regarding this patient. Last updated 18.[facility] [employer] [facility] Allergies No known active allergies Medications * [...] 0.56 - 0.96 mg/dL 02/07/2022 10:59 AM [facility] Sodium 138 136 - 145 mmol/L 02/07/2022 10:59 AM [facility] Potassium 4.0 3.5 - 4.5 mmol/L 02/07/2022 10:59 AM [facility] Chloride 104 98 - 107 mmol/L 02/07/2022 10:59 AM [facility] CO2 26 22 - 29 mmol/L 02/07/2022 10:59 AM [facility] Glucose 97 70 - 115 mg/dL 02/07/2022 10:59 AM [facility] Calcium 9.1 8.4 - 10.2 [...] Lab Venipuncture / Unknown 02/07/2022 9:57 AM [facility] 02/07/2022 10:28 AM [facility] Dede Causey MD LAB - CHEMISTRY ORDERABLES [facility] [address] [place] [address], [facility] [phone] from Last 3 Months or Most Recently Relevant to Health Maintenance Care Teams Acute Care Physician Relationship Specialty Start Date End Date Joey Hurley MD [address] [place] [address] PCP - General 02/04/22
[2024-11-26 10:45] LABS: Cholesterol 185 mg/dL (0-200); HDL Direct 47 mg/dL (40-60); LDL Cholesterol Calculated 115 mg/dL (<130); Triglycerides 116 mg/dL (0-150)
== END 2024-11-26 09:10 | disposition home or self-care (01) ==
PROVIDERS: PCP Internal Medicine; Visit Provider Internal Medicine
DX: Z00.00 Encounter for general adult medical examination without abnormal findings (principal)
CPT/HCPCS: 36415; 80061

== ENCOUNTER 2024-12-24 14:39 | Outpatient (CLI) | payer OTHER, SELFPAY ==
--- OUTSIDE RECORDS SUMMARY | 2024-12-24 15:58 | XMS_ITS | Clinical Summary ---
Author Organization [facility] Address [address] [place] [address] Care Team Providers Care Food Quality Technician Name Role Phone Joey Hurley MD Primary Care Provider [phone] Source Comments [facility],non-owned Affiliates and Associated Physician Practices is amultiple site organization consisting of ambulatory clinics and hospital sitesin [place], [place], [place] and [place]. This disclosure is being madepursuant to the Care Everywhere program and may not contain all information available regarding this patient. Last updated 18.[facility] Allergies No known active allergies Medications * [...] complete this topic MENINGOCOCCAL (Group B) VACCINE SHARED DECISION-MAKING Aged Out No longer eligible based on patient's age to complete this topic MENINGOCOCCAL GROUPS A/C/Y/W VACCINE Aged Out No longer eligible b [...] 7 - 26 mg/dL 02/07/2022 10:59 AM [facility] Creatinine 0.56 0.56 - 0.96 mg/dL 02/07/2022 10:59 AM [facility] Sodium 138 136 - 145 mmol/L 02/07/2022 10:59 AM [facility] Potassium 4.0 3.5 - 4.5 mmol/L 02/07/2022 10:59 AM [facility] Chloride 104 98 - 107 mmol/L 02/07/2022 10:59 AM [facility] CO2 26 22 - 29 mmol/L 02/07/2022 10:59 AM [facility] Glucose 97 70 - 115 mg/dL 02/07/2022 10:59 AM [facility] Calcium 9.1 8.4 - 10.2 mg/dL 02/07/2022 10:59 AM [facility] Protein Total 7.4 6.0 - 8.3 g/dL 02/07/2022 10:59 AM [facility] Albumin 3.6 3.4 - 5.0 g/dL 02/07/2022 10:59 AM [facility] Bilirubin Total 1.2 0.2 - 1.2 mg/dL 02/07/2022 10:59 AM [facility] Alkaline Phosphatase 88 40 - 150 U/L 02/07/2022 10:59 AM [facility] ALT 41 5 - 55 U/L 02/07/2022 10:59 AM [facility] AST 35(H) 5 - 34 U/L 02/07/2022 10:59 AM [facility] Anion Gap 12 8 - 18 02/07/2022 10:59 AM [facility] BUN/Creatinine Ratio 27(H) 7 - 23 02/07/2022 10:59 AM [facility] Osmolality Calculated 287 270 - 300 mOsm/kg 02/07/2022 10:59 AM [facility] Albumin/Globulin Ratio 0.9(L) 1.1 - 2.3 02/07/2022 10:59 AM [facility] eGFR by CKD-EPI >90 >=90 mL/min/1.7 3 m2 02/07/2022 10:59 AM [facility] Blood BLOOD SPECIMEN / Unknown Lab Venipuncture / Unknown 02/07/2022 9:57 AM CDT 02/07/2022 10:28 AM [facility] Dede Causey MD LAB - CHEMISTRY ORDERABLES [facility] [address] [place] [address] [phone] from Last 3 Months or Most Recently Relevant to Health Maintenance Care Teams Food Quality Technician Relationship Specialty Start Date End Date Joey Hurley MD [address] [place] [address] PCP - General 02/04/22
--- OUTSIDE RECORDS SUMMARY | 2024-12-24 15:58 | XMS_ITS | Clinical Summary ---
Author Organization [facility] Address [address] [place] [id number] Care Team Providers Care Gauge Controller Name Role Phone Unavailable Primary Care Provider [...]
[2024-12-26 03:03] LABS: Vitamin D 25 Hydroxy 56 ng/mL (30-100)
== END 2024-12-24 14:40 | disposition home or self-care (01) ==
LOC: CHSLAB 14:40
PROVIDERS: PCP Internal Medicine; Visit Provider Nurse Practitioner Obstetrics & Gynecology
DX: R79.89 Other specified abnormal findings of blood chemistry (principal)
CPT/HCPCS: 36415; 82306

== ENCOUNTER 2025-07-03 15:41 | Outpatient (CLI) | payer OTHER, SELFPAY ==
[2025-07-03 16:25] LABS: Influenza A QL RT-PCR Negative (Negative); Influenza B QL RT-PCR Negative (Negative)
== END 2025-07-03 15:42 | disposition home or self-care (01) ==
PROVIDERS: PCP Internal Medicine; Visit Provider Internal Medicine
DX: J06.9 Acute upper respiratory infection, unspecified (principal)
CPT/HCPCS: 87502

== ENCOUNTER 2025-09-03 10:33 | Outpatient (CLI) | payer OTHER, SELFPAY ==
[2025-09-03 11:09] LABS: Strep Group A RT-PCR NOT DETECTED (Negative)
[2025-09-03 11:21] LABS: Influenza A QL RT-PCR Negative (Negative); Influenza B QL RT-PCR Negative (Negative); RSV RNA, RT-PCR Negative (Negative); SARS-CoV-2 RNA PCR Positive (Negative)
--- OUTSIDE RECORDS SUMMARY | 2025-09-03 11:49 | XMS_ITS | Clinical Summary ---
Author Organization [facility] Address [address] [place] [address] Care Team Providers Care Nonprofit Fundraiser Name Role Phone Joey Hurley MD Primary Care Provider [phone] Source Comments [facility],non-owned Affiliates and Associated Physician Practices is amultiple site organization consisting of ambulatory clinics and hospital sitesin [place], [place], [place] and [place]. This disclosure is being madepursuant to the Care Everywhere program and may not contain all information available regarding this patient. Last updated 18.[facility] Allergies No known active allergies Medications * Be aware that medications may not be up to date on this document. Alwaysverify current medications with the patient. triamcinolone acetonide (KENALOG) 0.5 % ointment APPLY [...] Date Recorded PHQ2 TOTAL SCORE 0 04/19/2022 Comments No Sex and Gender Information Value Date Recorded Sex Assigned at Not on file Legal Sex Female 10:01 AM CDT Gender Identity Not on file Sexual [...] 3:29 PM CDT Height 167.6 cm (5' 6) 06/26/2022 3:29 PM CDT Body Mass Index [...] SCREENING 1979 LIPID TESTING 1979 MAMMOGRAM 1979 HIV SCREENING 1994 HEPATITIS C SCREENING 03/31/1997 DTAP/TDAP/TD VACCINES (1 - Tdap) 1998 HEPATITIS B VACCINE (1 of 3 - 19+ 3-dose series) 1998 PAP SMEAR 2000 Cervical Cancer Screening 2009 PAP with HPV 2009 DEPRESSION SCREENING 10/01/2024 04/19/2022 SCREENING FOR DIABETES 02/07/2025 02/07/2022 COVID-19 VACCINE (4 - 2024-2 6 season) 2025 08/05/2021, 10/25/2020, 09/27/2020 INFLUENZA VACCINE (#1) 2025 ZOSTER VACCINE (1 of 2) 2029 HIB [...] >=90 mL/min/1.7 3 m2 02/07/2022 10:59 AM [facility] Blood BLOOD SPECIMEN / Unknown Lab Venipuncture / Unknown 02/07/2022 9:57 AM [facility] 02/07/2022 10:28 AM [facility] Dede Causey MD LAB - CHEMISTRY ORDERAB LES Final Result Performing Organization Address [facility]/State/[facility] Co de Phone Number [facility] [address] [place] [address], [facility] [phone] from Last 3 Months or Most Recently Relevant to Health Maintenance Insurance [facility] Care Teams Nonprofit Fundraiser Relationship Specialty Start Date End Date Joey Hurley MD [address] [place] [address] PCP - General 02/04/22
== END 2025-09-03 10:34 | disposition home or self-care (01) ==
LOC: CHSLAB 10:34
PROVIDERS: PCP Internal Medicine; Visit Provider Internal Medicine
DX: U07.1 COVID-19 (principal); J06.9 Acute upper respiratory infection, unspecified
CPT/HCPCS: 87637; 87651